=== PATIENT | male | born 1940 | race Caucasian/White ===

== ENCOUNTER 2017-02-13 00:10 | Emergency (ER) | payer OTHER ==
[~2017-02-13] VITALS: Ht 165.1 cm; Wt 68.4 kg
[~2017-02-13 00:10] MED LIST: ALLOPURINOL100 MG PO; AMARYL4 MG PO; AMLODIPINE BESY10 MG PO; AMLODIPINE BESYL5 MG PO; APRESOLINE25 MG PO; ASCORBIC ACID500 M3 PO; ASPIR-LOW81 MG PO; ATORVASTATIN CA40 MG PO; CELEBREX200 MG PO; CLOPIDOGREL75 MG PO; COLCRYS0.6 MG PO; Cozaar PO; FOLIC ACID1 MG PO; GABAPENTIN100 MG PO; GEMFIBROZIL600 MG PO; GLUCOPHAGE1000 MG PO; HUMULIN N100 UNIT/2 SC; HUMULIN N100 UNITS/ SC; HYDROCODON-ACE1 EAC7 PO; IMDUR60 MG PO; ISOSORBIDE MONO60 MG PO; Imdur PO; LANTUS 3 M100 UNITS1 SC; LEVEMIR FL100 UNITS/ SC; LISINOPRIL20 MG PO; LISINOPRIL5 MG PO; LOPID600 MG PO; LOPRESSOR100 M1 PO; LOPRESSOR50 MG PO; Lipitor PO; Lopid PO; Lopressor PO; METOPROLOL TART50 MG PO; NOVOLIN INSULIN; Oscal 500 w/Vitamin PO; PANTOPRAZOLE SO40 MG PO; PLAVIX75 MG PO; PRINIVIL5 MG PO; Plavix PO; SENNA-TIME S T1 EACH PO; TRAMADOL HCL50 MG PO; Theragran PO; VICODIN 5-3001 EACH PO; Zestril,Prinivil PO; Zyloprim PO; celeBREX PO
[2017-02-13 00:48] LABS: HEMATOCRIT 34.5 % (38.0-50.0); MCH 30.7 PG (29.0-34.0); MCHC 31.9 G/DL (30.0-36.0); MCV 96.4 FL (86-99); MEAN PLAT.VOLUME 11.2 uM^3 (9.0-12.4); PLATELET COUNT 155 K/uL (156-360); RBC DIS.WIDTH-CV 15.1 % (11.8-14.6); RBC DIS.WIDTH-SD 53.9 % (39-53); RED BLOOD COUNT 3.58 M/uL (4.00-5.50); WHITE BLOOD COUNT 11.9 K/uL (4.1-10.2)
[2017-02-13 00:50] LABS: POINT-OF-CARE METER ID UU14100415; POINT-OF-CARE USER ID NUTMMM10
[2017-02-13 00:58] LABS: CHLORIDE 116 mEq/L (99-109); POTASSIUM 5.1 mEq/L (3.7-5.4); SODIUM 145 mEq/L (136-147)
[2017-02-13 00:59] LABS: GLUCOSE 96 mg/dL (70-99)
[2017-02-13 01:01] LABS: ANION GAP 15 MEQ/L (2-14)
[2017-02-13 01:04] LABS: UREA NITROGEN (BUN) 79 mg/dL (9-23)
[2017-02-13 01:11] LABS: GFR ESTIMATE (CALCULATED) 5 mL/min/
[2017-02-13 03:26] VITALS: BP 14/88
== END 2017-02-13 03:27 | disposition home or self-care (01) ==
LOC: EME 00:10
PROVIDERS: Emergency Medicine
DX: E11.649 Type 2 diabetes mellitus with hypoglycemia without coma (principal); N17.9 Acute kidney failure, unspecified; E11.22 Type 2 diabetes mellitus with diabetic chronic kidney disease; I12.9 Hypertensive chronic kidney disease with stage 1 through stage 4 chronic kidney disease, or unspecified chronic kidney disease; N18.9 Chronic kidney disease, unspecified; I25.2 Old myocardial infarction; Z86.73 Personal history of transient ischemic attack (TIA), and cerebral infarction without residual deficits; M10.9 Gout, unspecified; Z87.891 Personal history of nicotine dependence; Z88.0 Allergy status to penicillin
CPT/HCPCS: 80048; 82948; 85027; 99281; 99284

== ENCOUNTER 2017-02-16 09:01 | Emergency (ER) | payer OTHER ==
[~2017-02-16] VITALS: Ht 162.6 cm; Wt 63.7 kg
[2017-02-16 09:28] LABS: BASOPHIL COUNT 0.1 K/uL (0-0.1); EOSINOPHIL (%) 12.9 % (0-5); EOSINOPHIL COUNT 1.6 K/uL (0-0.3); HEMATOCRIT 29.9 % (38.0-50.0); IMMATURE GRANULOCYTE (%) 1.1 % (0.0-0.7); IMMATURE GRANULOCYTE COUNT 0.1 K/uL; INSTRUMENT ABS NEUTROPHIL CT 8.8 K/uL; MCH 31.4 PG (29.0-34.0); MCHC 31.8 G/DL (30.0-36.0); MCV 98.7 FL (86-99); MEAN PLAT.VOLUME 10.8 uM^3 (9.0-12.4); MONOCYTE (%) 6.1 % (3-12); MONOCYTE COUNT 0.8 K/uL (0-0.8); NEUTROPHIL (%) 71.5 % (45-76); NEUTROPHIL COUNT 8.8 K/uL (1.8-6.4); PLATELET COUNT 153 K/uL (156-360); RBC DIS.WIDTH-CV 15.3 % (11.8-14.6); RBC DIS.WIDTH-SD 55.8 % (39-53); RED BLOOD COUNT 3.03 M/uL (4.00-5.50); WHITE BLOOD COUNT 12.3 K/uL (4.1-10.2)
[2017-02-16 09:41] LABS: CHLORIDE 113 mEq/L (99-109); POTASSIUM 4.9 mEq/L (3.7-5.4); SODIUM 143 mEq/L (136-147)
[2017-02-16 09:43] LABS: GLUCOSE 116 mg/dL (70-99)
[2017-02-16 09:45] LABS: ANION GAP 14 MEQ/L (2-14)
[2017-02-16 09:47] LABS: GFR ESTIMATE (CALCULATED) 6 mL/min/
[2017-02-16 09:48] LABS: UREA NITROGEN (BUN) 85 mg/dL (9-23)
[2017-02-16 10:28] LABS: POINT-OF-CARE METER ID UU14100415
[2017-02-16 10:56] LABS: POINT-OF-CARE METER ID UU14100415; POINT-OF-CARE USER ID STWBNM
[2017-02-16 12:24] VITALS: BP 178/76
== END 2017-02-16 12:47 | disposition home or self-care (01) ==
LOC: EME → EDBD 09:01 → EME 09:01
PROVIDERS: Emergency Medicine
DX: E11.649 Type 2 diabetes mellitus with hypoglycemia without coma (principal); E11.22 Type 2 diabetes mellitus with diabetic chronic kidney disease; I12.9 Hypertensive chronic kidney disease with stage 1 through stage 4 chronic kidney disease, or unspecified chronic kidney disease; N18.9 Chronic kidney disease, unspecified; Z79.4 Long term (current) use of insulin; Z91.81 History of falling; Z87.891 Personal history of nicotine dependence
CPT/HCPCS: 71010; 80048; 81003; 82948; 85025; 99281; 99285

== ENCOUNTER 2017-02-25 16:58 | Inpatient (IN) | payer OTHER ==
[~2017-02-25] VITALS: Ht 162.6 cm; Wt 64.9 kg
[2017-02-25 18:50] LABS: HEMATOCRIT 26.6 % (38.0-50.0); MCH 30.9 PG (29.0-34.0); MCHC 30.8 G/DL (30.0-36.0); MCV 100.4 FL (86-99); MEAN PLAT.VOLUME 11.5 uM^3 (9.0-12.4); PLATELET COUNT 162 K/uL (156-360); RED BLOOD COUNT 2.65 M/uL (4.00-5.50); WHITE BLOOD COUNT 8.9 K/uL (4.1-10.2)
[2017-02-25 19:00] LABS: CHLORIDE 114 mEq/L (99-109); SODIUM 142 mEq/L (136-147)
[2017-02-25 19:03] LABS: ANION GAP 15 MEQ/L (2-14)
[2017-02-25 19:04] LABS: TOTAL BILIRUBIN 0.2 mg/dL (0.0-1.0)
[2017-02-25 19:05] LABS: ALKALINE PHOSPHATASE 113 IU/L (3-129)
[2017-02-25 19:06] LABS: GFR ESTIMATE (CALCULATED) 5 mL/min/
[2017-02-25 19:19] LABS: POTASSIUM 6.4 mEq/L (3.7-5.4)
[2017-02-25 19:22] LABS: GLUCOSE 167 mg/dL (70-99)
[2017-02-25 19:23] LABS: UREA NITROGEN (BUN) 112 mg/dL (9-23)
[2017-02-25 20:30] VITALS: BP 147/70
[2017-02-25] MEDS ORDERED: TOPROL XL100 MG PO (22:08)
[2017-02-25] MEDS ORDERED: NOVOLIN N100 UNITS/ SC ×2 (22:13→22:14)
[2017-02-26 00:58] LABS: POINT-OF-CARE METER ID UU13113698; POINT-OF-CARE USER ID ENVMNS
[2017-02-26 00:58] LABS: CARBON DIOXIDE (BICARBONATE) 12.8 MEQ/L (20-31)
[2017-02-26 03:00] VITALS: BP 155/89
[2017-02-26 04:51] LABS: ADD MIUA? YES; BILIRUBIN NEGATIVE; BLOOD SMALL; COLOR YELLOW ((YELLOW)); GLUCOSE (STRIP) >=500; KETONES NEGATIVE; LEUKOCYTES NEGATIVE; NITRITE NEGATIVE; PROTEIN (STRIP) >=500; SPECIFIC GRAVITY 1.012 (1.000-1.030); UROBILINOGEN 0.2 MG/DL (0.2-1.0)
[2017-02-26 05:02] LABS: BACTERIA RARE /HPF; EPITHELIAL CELLS RARE /HPF; MUCUS TRACE /LPF; RED BLOOD CELLS 0-5 /HPF (0-5); UCUL ADDED? NO; WHITE BLOOD CELLS 0-5 /HPF (0-5)
[2017-02-26 05:16] LABS: HEMATOCRIT 25.2 % (38.0-50.0); MCH 32.1 PG (29.0-34.0); MCHC 31.7 G/DL (30.0-36.0); MCV 101.2 FL (86-99); PLATELET COUNT 146 K/uL (156-360); RBC DIS.WIDTH-SD 59.8 % (39-53); RED BLOOD COUNT 2.49 M/uL (4.00-5.50); WHITE BLOOD COUNT 8.8 K/uL (4.1-10.2)
[2017-02-26 06:15] LABS: ANION GAP 14 MEQ/L (2-14); ANION GAP 16 MEQ/L (2-14); CHLORIDE 116 MEQ/L (99-109); GFR ESTIMATE (CALCULATED) 6 mL/min/; POTASSIUM 5.7 MEQ/L (3.7-5.4); SAMPLE HEMOLYSIS CHECK 0; SAMPLE ICTERIC CHECK 0; SAMPLE LIPEMIA CHECK 0; SODIUM 142 MEQ/L (136-147); SODIUM 143 MEQ/L (136-147); UREA NITROGEN (BUN) 95 mg/dL (9-23); UREA NITROGEN (BUN) 96 mg/dL (9-23)
[2017-02-26 06:17] LABS: GLUCOSE 98 mg/dL (70-99)
[2017-02-26 06:19] LABS: GLUCOSE 98 mg/dL (70-99)
[2017-02-26 07:29] VITALS: BP 158/75
[2017-02-26 07:49] LABS: POINT-OF-CARE METER ID UU13113781
[2017-02-26 12:29] VITALS: BP 150/70
[2017-02-26 14:51] LABS: IRON 40 MCG/DL (35-150)
[2017-02-26 16:00] VITALS: BP 151/76
[2017-02-26 19:00] VITALS: BP 146/66
[2017-02-26 20:04] LABS: INTERNAL CONTROL VALID? YES
[2017-02-26 20:32] LABS: C DIFF TOXIN NEGATIVE (NEGATIVE)
[2017-02-26 20:45] LABS: PROBE CHECK PASS; SPECIMEN PROCESSING CONTROL PASS
[2017-02-26 22:18] LABS: POINT-OF-CARE METER ID UU13113781
[2017-02-26 22:30] VITALS: BP 144/67
[2017-02-27 03:00] VITALS: BP 159/89
[2017-02-27 07:04] VITALS: BP 171/75
[2017-02-27 09:06] LABS: POINT-OF-CARE METER ID UU13113675
[2017-02-27 10:47] LABS: HEMATOCRIT 25.4 % (38.0-50.0); MCH 32.7 PG (29.0-34.0); MCHC 31.9 G/DL (30.0-36.0); MCV 102.4 FL (86-99); MEAN PLAT.VOLUME 11.6 uM^3 (9.0-12.4); PLATELET COUNT 158 K/uL (156-360); RBC DIS.WIDTH-CV 16.3 % (11.8-14.6); RED BLOOD COUNT 2.48 M/uL (4.00-5.50); WHITE BLOOD COUNT 10.2 K/uL (4.1-10.2)
[2017-02-27 11:15] LABS: ANION GAP 14 MEQ/L (2-14); CHLORIDE 117 MEQ/L (99-109); GFR ESTIMATE (CALCULATED) 6 mL/min/; GLUCOSE 89 mg/dL (70-99); POTASSIUM 5.6 MEQ/L (3.7-5.4); SAMPLE HEMOLYSIS CHECK 0; SAMPLE ICTERIC CHECK 0; SAMPLE LIPEMIA CHECK 0; SODIUM 143 MEQ/L (136-147); UREA NITROGEN (BUN) 93 mg/dL (9-23)
[2017-02-27 12:43] LABS: POINT-OF-CARE METER ID UU13113681
[2017-02-27 13:35] VITALS: BP 200/93
[2017-02-27 16:13] VITALS: BP 184/79
[2017-02-27 16:37] LABS: POINT-OF-CARE METER ID UU13113781
[2017-02-27 20:00] VITALS: BP 176/84
[2017-02-28] VITALS: BP 172/78
[2017-02-28 02:41] VITALS: BP 165/76
[2017-02-28 09:10] VITALS: BP 159/63
[2017-02-28 09:42] LABS: BASOPHIL COUNT 0.1 K/uL (0-0.1); EOSINOPHIL (%) 9.3 % (0-5); EOSINOPHIL COUNT 1.1 K/uL (0-0.3); HEMATOCRIT 26.6 % (38.0-50.0); IMMATURE GRANULOCYTE (%) 0.9 % (0.0-0.7); IMMATURE GRANULOCYTE COUNT 0.1 K/uL; INSTRUMENT ABS NEUTROPHIL CT 8.7 K/uL; LYMPHOCYTE COUNT 0.9 K/uL (1.0-2.8); MCH 30.9 PG (29.0-34.0); MCHC 31.2 G/DL (30.0-36.0); MCV 98.9 FL (86-99); MEAN PLAT.VOLUME 11.9 uM^3 (9.0-12.4); MONOCYTE (%) 7.6 % (3-12); MONOCYTE COUNT 0.9 K/uL (0-0.8); NEUTROPHIL (%) 74.4 % (45-76); NEUTROPHIL COUNT 8.7 K/uL (1.8-6.4); PLATELET COUNT 147 K/uL (156-360); RBC DIS.WIDTH-CV 16.4 % (11.8-14.6); RBC DIS.WIDTH-SD 59.1 % (39-53); RED BLOOD COUNT 2.69 M/uL (4.00-5.50); WHITE BLOOD COUNT 11.7 K/uL (4.1-10.2)
[2017-02-28 10:36] LABS: ANTI-HEPATITIS B CORE (TOTAL) Nonreactive; HBCT INDEX 0.12
[2017-02-28 10:39] LABS: HBSG INDEX 0.21; HPCA INDEX 0.08
[2017-02-28 10:40] LABS: AHBS INDEX 0; HEPATITIS B SURFACE ANTIBODY Nonreactive
[2017-02-28 11:00] LABS: HEMATOCRIT 26.6 % (38.0-50.0); MCH 30.9 PG (29.0-34.0); MCHC 31.2 G/DL (30.0-36.0); MCV 98.9 FL (86-99); MEAN PLAT.VOLUME 11.9 uM^3 (9.0-12.4); PLATELET COUNT 147 K/uL (156-360); RBC DIS.WIDTH-CV 16.4 % (11.8-14.6); RBC DIS.WIDTH-SD 59.1 % (39-53); RED BLOOD COUNT 2.69 M/uL (4.00-5.50); WHITE BLOOD COUNT 11.7 K/uL (4.1-10.2)
[2017-02-28 11:32] LABS: ANION GAP 13 MEQ/L (2-14); CHLORIDE 111 MEQ/L (99-109); GFR ESTIMATE (CALCULATED) 8 mL/min/; GLUCOSE 192 mg/dL (70-99); POTASSIUM 4.5 MEQ/L (3.7-5.4); SAMPLE HEMOLYSIS CHECK 0; SAMPLE ICTERIC CHECK 0; SAMPLE LIPEMIA CHECK 0; SODIUM 141 MEQ/L (136-147); UREA NITROGEN (BUN) 58 mg/dL (9-23)
[2017-02-28 11:50] VITALS: BP 184/88
[2017-02-28 15:05] LABS: POINT-OF-CARE METER ID UU14174212
[2017-02-28 16:04] LABS: POINT-OF-CARE METER ID UU13113819
[2017-02-28 17:08] VITALS: BP 182/89
[2017-02-28 19:30] VITALS: BP 179/79
[2017-03-01] VITALS (7 sets, daily range): BP systolic 134–189; BP diastolic 64–84
[2017-03-01 05:45] LABS: BASOPHIL COUNT 0.1 K/uL (0-0.1); EOSINOPHIL (%) 9.4 % (0-5); EOSINOPHIL COUNT 1.1 K/uL (0-0.3); HEMATOCRIT 26.6 % (38.0-50.0); IMMATURE GRANULOCYTE (%) 1.2 % (0.0-0.7); IMMATURE GRANULOCYTE COUNT 0.2 K/uL; INSTRUMENT ABS NEUTROPHIL CT 8.6 K/uL; MCH 31.1 PG (29.0-34.0); MCV 97.4 FL (86-99); MEAN PLAT.VOLUME 11.6 uM^3 (9.0-12.4); MONOCYTE (%) 9.5 % (3-12); MONOCYTE COUNT 1.2 K/uL (0-0.8); NEUTROPHIL (%) 71.4 % (45-76); NEUTROPHIL COUNT 8.6 K/uL (1.8-6.4); NRBC (%) 0.2 /100 WBC (0-0); PLATELET COUNT 137 K/uL (156-360); RBC DIS.WIDTH-CV 16.1 % (11.8-14.6); RBC DIS.WIDTH-SD 57.2 % (39-53); RED BLOOD COUNT 2.73 M/uL (4.00-5.50); WHITE BLOOD COUNT 12.1 K/uL (4.1-10.2)
[2017-03-01 06:22] LABS: ANION GAP 12 MEQ/L (2-14); CHLORIDE 107 MEQ/L (99-109); POTASSIUM 4.2 MEQ/L (3.7-5.4); SAMPLE HEMOLYSIS CHECK 0; SAMPLE ICTERIC CHECK 0; SAMPLE LIPEMIA CHECK 0; SODIUM 139 MEQ/L (136-147); UREA NITROGEN (BUN) 41 mg/dL (9-23)
[2017-03-01 06:24] LABS: GFR ESTIMATE (CALCULATED) 11 mL/min/; GLUCOSE 89 mg/dL (70-99)
[2017-03-02 04:30] VITALS: BP 168/76
[2017-03-02 05:42] LABS: BASOPHIL COUNT 0.1 K/uL (0-0.1); EOSINOPHIL (%) 2.1 % (0-5); EOSINOPHIL COUNT 0.3 K/uL (0-0.3); HEMATOCRIT 27.2 % (38.0-50.0); IMMATURE GRANULOCYTE (%) 1.3 % (0.0-0.7); IMMATURE GRANULOCYTE COUNT 0.2 K/uL; INSTRUMENT ABS NEUTROPHIL CT 12.3 K/uL; LYMPHOCYTE COUNT 0.6 K/uL (1.0-2.8); MCH 30.4 PG (29.0-34.0); MCHC 30.9 G/DL (30.0-36.0); MCV 98.6 FL (86-99); MEAN PLAT.VOLUME 11.6 uM^3 (9.0-12.4); MONOCYTE (%) 10.7 % (3-12); MONOCYTE COUNT 1.6 K/uL (0-0.8); NEUTROPHIL (%) 81.5 % (45-76); NEUTROPHIL COUNT 12.3 K/uL (1.8-6.4); NRBC (%) 0.3 /100 WBC (0-0); PLATELET COUNT 147 K/uL (156-360); RBC DIS.WIDTH-CV 15.9 % (11.8-14.6); RED BLOOD COUNT 2.76 M/uL (4.00-5.50)
[2017-03-02 06:57] LABS: ANION GAP 13 MEQ/L (2-14); CHLORIDE 107 MEQ/L (99-109); GLUCOSE 96 mg/dL (70-99); POTASSIUM 4.5 MEQ/L (3.7-5.4); SAMPLE HEMOLYSIS CHECK 0; SAMPLE ICTERIC CHECK 0; SAMPLE LIPEMIA CHECK 0; SODIUM 139 MEQ/L (136-147); UREA NITROGEN (BUN) 49 mg/dL (9-23)
[2017-03-02 07:09] LABS: GFR ESTIMATE (CALCULATED) 9 mL/min/
[2017-03-02 07:35] VITALS: BP 165/77
[2017-03-02 08:59] LABS: EOSINOPHIL (%) 1.1 % (0-5); EOSINOPHIL COUNT 0.2 K/uL (0-0.3); HEMATOCRIT 26.8 % (38.0-50.0); IMMATURE GRANULOCYTE (%) 1.3 % (0.0-0.7); IMMATURE GRANULOCYTE COUNT 0.2 K/uL; INSTRUMENT ABS NEUTROPHIL CT 13.2 K/uL; LYMPHOCYTE COUNT 0.7 K/uL (1.0-2.8); MCH 32.7 PG (29.0-34.0); MCHC 32.8 G/DL (30.0-36.0); MCV 99.6 FL (86-99); MEAN PLAT.VOLUME 11.7 uM^3 (9.0-12.4); MONOCYTE (%) 10.1 % (3-12); MONOCYTE COUNT 1.6 K/uL (0-0.8); NEUTROPHIL (%) 83.1 % (45-76); NEUTROPHIL COUNT 13.2 K/uL (1.8-6.4); NRBC (%) 0.4 /100 WBC (0-0); PLATELET COUNT 151 K/uL (156-360); RBC DIS.WIDTH-CV 16.1 % (11.8-14.6); RED BLOOD COUNT 2.69 M/uL (4.00-5.50); WHITE BLOOD COUNT 15.8 K/uL (4.1-10.2)
[2017-03-02 12:38] VITALS: BP 195/91
[2017-03-02 15:34] VITALS: BP 165/73
[2017-03-02 19:30] VITALS: BP 164/70
[2017-03-02 23:15] VITALS: BP 160/70
[2017-03-03 03:30] VITALS: BP 154/70
[2017-03-03 05:30] LABS: EOSINOPHIL (%) 1.6 % (0-5); EOSINOPHIL COUNT 0.2 K/uL (0-0.3); HEMATOCRIT 26.5 % (38.0-50.0); IMMATURE GRANULOCYTE (%) 0.9 % (0.0-0.7); IMMATURE GRANULOCYTE COUNT 0.1 K/uL; INSTRUMENT ABS NEUTROPHIL CT 11.1 K/uL; LYMPHOCYTE COUNT 0.8 K/uL (1.0-2.8); MCH 31.6 PG (29.0-34.0); MCHC 32.1 G/DL (30.0-36.0); MCV 98.5 FL (86-99); MEAN PLAT.VOLUME 11.4 uM^3 (9.0-12.4); MONOCYTE (%) 12.6 % (3-12); MONOCYTE COUNT 1.8 K/uL (0-0.8); NEUTROPHIL (%) 78.7 % (45-76); NEUTROPHIL COUNT 11.1 K/uL (1.8-6.4); NRBC (%) 0.2 /100 WBC (0-0); PLATELET COUNT 144 K/uL (156-360); RBC DIS.WIDTH-CV 15.9 % (11.8-14.6); RBC DIS.WIDTH-SD 56.3 % (39-53); RED BLOOD COUNT 2.69 M/uL (4.00-5.50); WHITE BLOOD COUNT 14.1 K/uL (4.1-10.2)
[2017-03-03 06:03] LABS: ANION GAP 13 MEQ/L (2-14); CHLORIDE 102 MEQ/L (99-109); GFR ESTIMATE (CALCULATED) 10 mL/min/; GLUCOSE 83 mg/dL (70-99); POTASSIUM 4.8 MEQ/L (3.7-5.4); SAMPLE HEMOLYSIS CHECK 0; SAMPLE ICTERIC CHECK 0; SAMPLE LIPEMIA CHECK 0; SODIUM 136 MEQ/L (136-147); UREA NITROGEN (BUN) 41 mg/dL (9-23); URIC ACID 4.2 mg/dL (3.1-9.2)
[2017-03-03 07:57] VITALS: BP 158/73
[2017-03-03 11:58] VITALS: BP 153/68
[2017-03-03] MEDS ORDERED: APRESOLINE25 MG PO (14:19)
[2017-03-03] MEDS ORDERED: COZAAR50 MG PO (14:20)
[2017-03-03] MEDS ORDERED: PANTOPRAZOLE SO40 MG PO (14:23)
[2017-03-03] MEDS ORDERED: CALCIUM ACETAT667 MG PO (14:23)
[2017-03-03] MEDS ORDERED: CALCITRIOL0.25 MCG PO (14:24)
[2017-03-03] MEDS ORDERED: NOVOLOG PE100 UNITS/ SC (14:24)
[2017-03-03] MEDS ORDERED: Colchicine,Colcrys PO (14:24)
[2017-03-03] MEDS ORDERED: LORAZEPAM0.5 MG PO (14:30)
[2017-03-03] MEDS ORDERED: OXYCODONE HCL5 MG PO (14:30)
[2017-03-03] MEDS ORDERED: LASIX40 MG PO (14:33)
[2017-05-05] MEDS ORDERED: APRESOLINE25 MG PO (22:44)
[2017-05-05] MEDS ORDERED: OXYCODONE HCL5 M1 PO (22:46)
[2017-05-05] MEDS ORDERED: PLAVIX75 MG PO (22:47)
[2017-05-05] MEDS ORDERED: CALCIUM ACETAT667 MG PO (22:47)
[2017-05-05] MEDS ORDERED: IMDUR60 MG PO (22:48)
[2017-05-05] MEDS ORDERED: TOPROL XL50 MG PO (22:49)
[2017-05-05] MEDS ORDERED: ASPIRIN81 M2 PO (22:50)
[2017-05-05] MEDS ORDERED: COZAAR100 MG PO (22:50)
[2017-05-05] MEDS ORDERED: COLACE100 MG PO (22:51)
[2017-05-05] MEDS ORDERED: RENVELA800 MG PO (22:51)
[2017-05-05] MEDS ORDERED: FUROSEMIDE20 MG PO (22:51)
[2017-05-05] MEDS ORDERED: OXYCODONE HCL5 MG PO ×2 (22:53→22:58)
[2017-05-05] MEDS ORDERED: SENNA PLUS TAB1 EACH PO (22:57)
[2017-05-05] MEDS ORDERED: ATIVAN0.5 MG PO (22:59)
[2017-05-05] MEDS ORDERED: TRAMADOL HCL50 MG PO (23:00)
[2017-05-05] MEDS ORDERED: DUONEB 2.5-0.5 M3 ML AEROSOL (23:01)
[2017-05-10] MEDS ORDERED: LISINOPRIL5 MG PO (12:54)
[2017-05-10] MEDS ORDERED: PANTOPRAZOLE SO40 MG PO (12:56)
== END 2017-03-03 16:42 | DRG 683 ==
LOC: EME 16:58 → 4EAST 21:02 → EDOF 21:02 → 4EAST 22:17
PROVIDERS: Hospitalist; Internal Medicine; Internal Medicine Nephrology
DX: N17.9 Acute kidney failure, unspecified (principal); I12.0 Hypertensive chronic kidney disease with stage 5 chronic kidney disease or end stage renal disease; E87.2 Acidosis; I42.9 Cardiomyopathy, unspecified; K92.1 Melena; I69.351 Hemiplegia and hemiparesis following cerebral infarction affecting right dominant side; N18.6 End stage renal disease; K29.60 Other gastritis without bleeding; B96.23 Unspecified Shiga toxin-producing Escherichia coli [E. coli] [STEC] as the cause of diseases classified elsewhere; D63.1 Anemia in chronic kidney disease; E11.22 Type 2 diabetes mellitus with diabetic chronic kidney disease; N25.81 Secondary hyperparathyroidism of renal origin; K29.80 Duodenitis without bleeding; I25.2 Old myocardial infarction; M10.9 Gout, unspecified; M19.90 Unspecified osteoarthritis, unspecified site; E87.5 Hyperkalemia; I34.0 Nonrheumatic mitral (valve) insufficiency; I27.2 Other secondary pulmonary hypertension; I16.0 Hypertensive urgency; I50.9 Heart failure, unspecified; E11.649 Type 2 diabetes mellitus with hypoglycemia without coma; E78.5 Hyperlipidemia, unspecified; I36.0 Nonrheumatic tricuspid (valve) stenosis; G89.29 Other chronic pain; R29.6 Repeated falls; Z79.82 Long term (current) use of aspirin; Z80.0 Family history of malignant neoplasm of digestive organs; Z82.49 Family history of ischemic heart disease and other diseases of the circulatory system; Z99.2 Dependence on renal dialysis
CPT/HCPCS: 71010; 80048; 80048 91; 80053; 80069; 81003; 82803; 82948; 83540; 83630; 84466; 84550; 85014; 85018; 85025; 85025 91; 85027; 86704; 86706; 86803; 87045; 87177; 87340; 87493; 87506; 88305; 88342 TC; 93005; 93306; 93970; 94640; 99281; 99285; C1788; C9113; J0360; J0610; J0690; J0881; J1644; J1756; J1815; J2250; J2270; J3010; J7030; J7040; J7050

== ENCOUNTER 2017-03-06 02:00 | Inpatient (IN) | payer OTHER ==
[~2017-03-06] VITALS: Ht 162.6 cm; Wt 64.0 kg
[~2017-03-06 02:00] MED LIST changes: +CALCITRIOL0.25 MCG PO; +CALCIUM ACETAT667 MG PO; +COZAAR50 MG PO; +Colchicine,Colcrys PO; +LASIX40 MG PO; +LORAZEPAM0.5 MG PO; +NOVOLIN N100 UNITS/ SC; +NOVOLOG PE100 UNITS/ SC; +OXYCODONE HCL5 MG PO; +TOPROL XL100 MG PO
[2017-03-06 02:38] LABS: EOSINOPHIL (%) 6.9 % (0-5); EOSINOPHIL COUNT 0.6 K/uL (0-0.3); HEMATOCRIT 25.9 % (38.0-50.0); IMMATURE GRANULOCYTE (%) 1.3 % (0.0-0.7); IMMATURE GRANULOCYTE COUNT 0.1 K/uL; INSTRUMENT ABS NEUTROPHIL CT 6.4 K/uL; LYMPHOCYTE COUNT 0.5 K/uL (1.0-2.8); MCH 30.8 PG (29.0-34.0); MCHC 31.7 G/DL (30.0-36.0); MCV 97.4 FL (86-99); MEAN PLAT.VOLUME 10.6 uM^3 (9.0-12.4); MONOCYTE (%) 10.8 % (3-12); MONOCYTE COUNT 0.9 K/uL (0-0.8); NEUTROPHIL (%) 75.5 % (45-76); NEUTROPHIL COUNT 6.4 K/uL (1.8-6.4); NRBC (%) 0.2 /100 WBC (0-0); PLATELET COUNT 135 K/uL (156-360); RBC DIS.WIDTH-CV 14.8 % (11.8-14.6); RBC DIS.WIDTH-SD 53.2 % (39-53); RED BLOOD COUNT 2.66 M/uL (4.00-5.50); WHITE BLOOD COUNT 8.5 K/uL (4.1-10.2)
[2017-03-06 02:51] LABS: CHLORIDE 95 mEq/L (99-109); POTASSIUM 4.2 mEq/L (3.7-5.4); SODIUM 137 mEq/L (136-147)
[2017-03-06 02:54] LABS: ANION GAP 17 MEQ/L (2-14); GLUCOSE 138 mg/dL (70-99)
[2017-03-06 02:55] LABS: TOTAL BILIRUBIN 0.3 mg/dL (0.0-1.0)
[2017-03-06 02:57] LABS: ALKALINE PHOSPHATASE 150 IU/L (3-129); GFR ESTIMATE (CALCULATED) 12 mL/min/
[2017-03-06 02:58] LABS: TROP-I INTERPRETATION INDETERMINATE; TROPONIN-I 0.31 ng/mL (0.0-0.30); UREA NITROGEN (BUN) 42 mg/dL (9-23)
[2017-03-06 06:00] VITALS: BP 105/60
[2017-03-06 07:00] VITALS: BP 119/63
[2017-03-06 07:43] LABS: METH RESISTANT S AUREUS PCR NEGATIVE (NEGATIVE)
[2017-03-06 07:59] LABS: PROBE CHECK PASS; SPECIMEN PROCESSING CONTROL PASS
[2017-03-06 11:00] VITALS: BP 139/67
[2017-03-06 16:00] VITALS: BP 139/67
[2017-03-06 16:30] LABS: BICARBONATE 26.5 mEq/L (22-26); CARBOXY HGB 1.8 % (0-5); COMMENTS - BLOOD GASES A+C+; METHEMOGLOBIN 1.4 % (0-1.5); O2 FLOW 9.5 L/MIN; PCO2 40 mm Hg (35-45); PO2 54 mm Hg (80-100); SITE LR; pH 7.43 (7.35-7.45)
[2017-03-06 16:31] LABS: DEVICE HFNC; TOTAL RESP RATE 23 resp/min
[2017-03-06 17:02] LABS: POINT-OF-CARE METER ID UU13113731
[2017-03-06 17:20] LABS: TROP-I INTERPRETATION POSITIVE; TROPONIN-I 1.68 ng/mL (0.0-0.30)
[2017-03-06 22:45] LABS: POINT-OF-CARE METER ID UU13113748; POINT-OF-CARE USER ID PHATLC
[2017-03-07 06:17] LABS: EOSINOPHIL COUNT 0.3 K/uL (0-0.3); HEMATOCRIT 26.1 % (38.0-50.0); IMMATURE GRANULOCYTE (%) 1.2 % (0.0-0.7); IMMATURE GRANULOCYTE COUNT 0.1 K/uL; LYMPHOCYTE COUNT 0.5 K/uL (1.0-2.8); MCH 32.5 PG (29.0-34.0); MCHC 33.3 G/DL (30.0-36.0); MCV 97.4 FL (86-99); MEAN PLAT.VOLUME 11.5 uM^3 (9.0-12.4); MONOCYTE (%) 11.3 % (3-12); MONOCYTE COUNT 0.9 K/uL (0-0.8); NEUTROPHIL (%) 76.6 % (45-76); PLATELET COUNT 115 K/uL (156-360); RBC DIS.WIDTH-CV 14.6 % (11.8-14.6); RBC DIS.WIDTH-SD 51.8 % (39-53); RED BLOOD COUNT 2.68 M/uL (4.00-5.50); WHITE BLOOD COUNT 7.8 K/uL (4.1-10.2)
[2017-03-07 07:02] LABS: TROP-I INTERPRETATION POSITIVE; TROPONIN-I 2.25 ng/mL (0.0-0.30)
[2017-03-07 07:35] LABS: ANION GAP 20 MEQ/L (2-14); CHLORIDE 93 MEQ/L (99-109); GFR ESTIMATE (CALCULATED) 11 mL/min/; SAMPLE HEMOLYSIS CHECK 0; SAMPLE ICTERIC CHECK 0; SAMPLE LIPEMIA CHECK 0; SODIUM 134 MEQ/L (136-147); UREA NITROGEN (BUN) 52 mg/dL (9-23)
[2017-03-07 07:37] LABS: GLUCOSE 101 mg/dL (70-99)
[2017-03-07 09:00] VITALS: BP 140/50
[2017-03-07 12:00] VITALS: BP 105/52
[2017-03-07 12:49] LABS: POINT-OF-CARE METER ID UU13113731
[2017-03-07 17:31] LABS: POINT-OF-CARE METER ID UU13113748
[2017-03-07 18:26] VITALS: BP 134/72
[2017-03-07 23:43] VITALS: BP 129/58
[2017-03-08] VITALS (8 sets, daily range): BP systolic 120–174; BP diastolic 61–96
[2017-03-08 08:49] LABS: ANION GAP 15 MEQ/L (2-14); CHLORIDE 93 MEQ/L (99-109); GFR ESTIMATE (CALCULATED) 9 mL/min/; GLUCOSE 169 mg/dL (70-99); POTASSIUM 4.3 MEQ/L (3.7-5.4); SAMPLE HEMOLYSIS CHECK 0; SAMPLE ICTERIC CHECK 0; SAMPLE LIPEMIA CHECK 0; SODIUM 131 MEQ/L (136-147); UREA NITROGEN (BUN) 66 mg/dL (9-23)
[2017-03-08 08:52] LABS: EOSINOPHIL (%) 2.3 % (0-5); EOSINOPHIL COUNT 0.2 K/uL (0-0.3); HEMATOCRIT 24.7 % (38.0-50.0); IMMATURE GRANULOCYTE (%) 1.5 % (0.0-0.7); IMMATURE GRANULOCYTE COUNT 0.1 K/uL; INSTRUMENT ABS NEUTROPHIL CT 7.8 K/uL; LYMPHOCYTE COUNT 0.6 K/uL (1.0-2.8); MCH 31.2 PG (29.0-34.0); MCV 97.6 FL (86-99); MEAN PLAT.VOLUME 11.5 uM^3 (9.0-12.4); MONOCYTE (%) 8.8 % (3-12); MONOCYTE COUNT 0.8 K/uL (0-0.8); NEUTROPHIL (%) 81.3 % (45-76); NEUTROPHIL COUNT 7.8 K/uL (1.8-6.4); NRBC (%) 0.2 /100 WBC (0-0); RBC DIS.WIDTH-CV 14.5 % (11.8-14.6); RBC DIS.WIDTH-SD 51.5 % (39-53); RED BLOOD COUNT 2.53 M/uL (4.00-5.50); WHITE BLOOD COUNT 9.6 K/uL (4.1-10.2)
[2017-03-08 08:55] LABS: PLATELET COUNT 155 K/uL (156-360)
[2017-03-09] VITALS: BP 142/63
[2017-03-09 04:00] VITALS: BP 157/71
[2017-03-09 05:23] LABS: EOSINOPHIL (%) 2.5 % (0-5); EOSINOPHIL COUNT 0.3 K/uL (0-0.3); HEMATOCRIT 29.7 % (38.0-50.0); IMMATURE GRANULOCYTE (%) 2.4 % (0.0-0.7); IMMATURE GRANULOCYTE COUNT 0.2 K/uL; LYMPHOCYTE COUNT 0.7 K/uL (1.0-2.8); MCH 30.2 PG (29.0-34.0); MCV 94.3 FL (86-99); MEAN PLAT.VOLUME 10.8 uM^3 (9.0-12.4); MONOCYTE COUNT 0.9 K/uL (0-0.8); NEUTROPHIL (%) 79.2 % (45-76); PLATELET COUNT 148 K/uL (156-360); RBC DIS.WIDTH-CV 15.8 % (11.8-14.6); RBC DIS.WIDTH-SD 54.5 % (39-53); WHITE BLOOD COUNT 10.1 K/uL (4.1-10.2)
[2017-03-09 05:34] LABS: RED BLOOD COUNT 3.15 M/uL (4.00-5.50)
[2017-03-09 05:47] LABS: TROP-I INTERPRETATION POSITIVE; TROPONIN-I 1.59 ng/mL (0.0-0.30)
[2017-03-09 05:58] LABS: ANION GAP 15 MEQ/L (2-14); CHLORIDE 96 MEQ/L (99-109); GFR ESTIMATE (CALCULATED) 11 mL/min/; GLUCOSE 125 mg/dL (70-99); POTASSIUM 4.4 MEQ/L (3.7-5.4); SAMPLE HEMOLYSIS CHECK 0; SAMPLE ICTERIC CHECK 0; SAMPLE LIPEMIA CHECK 0; SODIUM 132 MEQ/L (136-147); UREA NITROGEN (BUN) 46 mg/dL (9-23)
[2017-03-09 08:08] LABS: POINT-OF-CARE METER ID UU13113698
[2017-03-09 08:25] VITALS: BP 190/82
[2017-03-09 10:21] LABS: BASE EXCESS -2.5 mEq/L (-3 to +3); BICARBONATE 23.2 mEq/L (22-26); CARBOXY HGB 1.4 % (0-5); METHEMOGLOBIN 1.5 % (0-1.5); PCO2 43 mm Hg (35-45); pH 7.34 (7.35-7.45)
[2017-03-09 10:22] LABS: DEVICE NRBR; FI02 100 %; O2 FLOW 15 L/MIN; PO2 220 mm Hg (80-100); SITE LB
[2017-03-09 10:23] LABS: TOTAL RESP RATE 22 resp/min
[2017-03-09 10:45] LABS: TROP-I INTERPRETATION POSITIVE; TROPONIN-I 1.38 ng/mL (0.0-0.30)
[2017-03-09 11:27] VITALS: BP 132/61
[2017-03-09 12:00] LABS: POINT-OF-CARE METER ID UU13113698
[2017-03-09 16:34] LABS: TROP-I INTERPRETATION POSITIVE; TROPONIN-I 1.14 ng/mL (0.0-0.30)
[2017-03-09 16:42] VITALS: BP 128/56
[2017-03-09 16:43] LABS: POINT-OF-CARE METER ID UU13113698
[2017-03-09 20:00] VITALS: BP 129/63
[2017-03-09 20:50] LABS: POINT-OF-CARE METER ID UU14174216
[2017-03-10 00:08] VITALS: BP 125/57
[2017-03-10 03:08] VITALS: BP 122/65
[2017-03-10 07:50] VITALS: BP 123/56
[2017-03-10 08:15] LABS: POINT-OF-CARE METER ID UU14174216; POINT-OF-CARE USER ID ENVKC36
[2017-03-10 11:32] LABS: POINT-OF-CARE METER ID UU13113696
[2017-03-10 12:14] VITALS: BP 103/51
[2017-03-10 13:28] LABS: EOSINOPHIL (%) 0 % (0-5); IMMATURE GRANULOCYTE (%) 1.7 % (0.0-0.7); IMMATURE GRANULOCYTE COUNT 0.2 K/uL; INSTRUMENT ABS NEUTROPHIL CT 9.9 K/uL; LYMPHOCYTE COUNT 0.8 K/uL (1.0-2.8); MCHC 31.5 G/DL (30.0-36.0); MCV 95.2 FL (86-99); MEAN PLAT.VOLUME 11.2 uM^3 (9.0-12.4); MONOCYTE (%) 6.5 % (3-12); MONOCYTE COUNT 0.8 K/uL (0-0.8); NEUTROPHIL (%) 85.2 % (45-76); NEUTROPHIL COUNT 9.9 K/uL (1.8-6.4); PLATELET COUNT 172 K/uL (156-360); RBC DIS.WIDTH-CV 15.2 % (11.8-14.6); RBC DIS.WIDTH-SD 52.5 % (39-53); RED BLOOD COUNT 2.73 M/uL (4.00-5.50); WHITE BLOOD COUNT 11.6 K/uL (4.1-10.2)
[2017-03-10 13:29] LABS: ANION GAP 16 MEQ/L (2-14); CHLORIDE 94 MEQ/L (99-109); POTASSIUM 4.5 MEQ/L (3.7-5.4); SAMPLE HEMOLYSIS CHECK 0; SAMPLE ICTERIC CHECK 0; SAMPLE LIPEMIA CHECK 0; SODIUM 131 MEQ/L (136-147)
[2017-03-10 13:35] LABS: GFR ESTIMATE (CALCULATED) 8 mL/min/; GLUCOSE 111 mg/dL (70-99)
[2017-03-10 13:36] LABS: UREA NITROGEN (BUN) 75 mg/dL (9-23)
[2017-03-10 16:17] VITALS: BP 168/67
[2017-03-10 16:51] LABS: POINT-OF-CARE METER ID UU14174216; POINT-OF-CARE USER ID ENVKC36
[2017-03-10 17:07] LABS: COMMENTS - BLOOD GASES A+C+; DEVICE NC; O2 FLOW 4 L/MIN; PCO2 34 mm Hg (35-45); PO2 74 mm Hg (80-100); SITE LR; TOTAL RESP RATE 24 resp/min; pH 7.48 (7.35-7.45)
[2017-03-10 17:08] LABS: BASE EXCESS 1.9 mEq/L (-3 to +3); BICARBONATE 25.3 mEq/L (22-26); CARBOXY HGB 1.5 % (0-5); HEMOGLOBIN 9.1 (12.5-16.6); METHEMOGLOBIN 1.4 % (0-1.5); O2 SATURATION (CALCULATED) 95.1 % (95-99)
[2017-03-10 17:33] LABS: POINT-OF-CARE USER ID NUTSLF44
[2017-03-10 19:32] VITALS: BP 121/59
[2017-03-10 20:44] LABS: POINT-OF-CARE METER ID UU14174216; POINT-OF-CARE USER ID ENVMNS
[2017-03-11 00:03] VITALS: BP 124/61
[2017-03-11 04:43] VITALS: BP 135/60
[2017-03-11 05:41] LABS: EOSINOPHIL (%) 1.2 % (0-5); EOSINOPHIL COUNT 0.1 K/uL (0-0.3); HEMATOCRIT 29.2 % (38.0-50.0); IMMATURE GRANULOCYTE (%) 1.2 % (0.0-0.7); IMMATURE GRANULOCYTE COUNT 0.1 K/uL; INSTRUMENT ABS NEUTROPHIL CT 9.6 K/uL; LYMPHOCYTE COUNT 0.9 K/uL (1.0-2.8); MCH 31.4 PG (29.0-34.0); MCHC 32.9 G/DL (30.0-36.0); MCV 95.4 FL (86-99); MEAN PLAT.VOLUME 11.3 uM^3 (9.0-12.4); MONOCYTE (%) 8.2 % (3-12); NEUTROPHIL (%) 81.7 % (45-76); NEUTROPHIL COUNT 9.6 K/uL (1.8-6.4); PLATELET COUNT 167 K/uL (156-360); RBC DIS.WIDTH-CV 14.8 % (11.8-14.6); RBC DIS.WIDTH-SD 52.3 % (39-53); RED BLOOD COUNT 3.06 M/uL (4.00-5.50); WHITE BLOOD COUNT 11.7 K/uL (4.1-10.2)
[2017-03-11 06:07] LABS: ANION GAP 14 MEQ/L (2-14); CHLORIDE 98 MEQ/L (99-109); GFR ESTIMATE (CALCULATED) 11 mL/min/; GLUCOSE 84 mg/dL (70-99); POTASSIUM 4.1 MEQ/L (3.7-5.4); SAMPLE HEMOLYSIS CHECK 0; SAMPLE ICTERIC CHECK 0; SAMPLE LIPEMIA CHECK 0; SODIUM 136 MEQ/L (136-147); UREA NITROGEN (BUN) 46 mg/dL (9-23)
[2017-03-11 07:26] VITALS: BP 127/58
[2017-03-11 07:59] LABS: POINT-OF-CARE METER ID UU13113781
[2017-03-11 11:31] LABS: POINT-OF-CARE METER ID UU13113781
[2017-03-11 11:46] VITALS: BP 116/54
[2017-03-11 16:14] LABS: POINT-OF-CARE METER ID UU13113819
[2017-03-11 19:50] VITALS: BP 154/70
[2017-03-11 21:23] LABS: POINT-OF-CARE USER ID ENVMNS
[2017-03-12 00:30] VITALS: BP 121/61
[2017-03-12 04:40] VITALS: BP 117/57
[2017-03-12 05:22] LABS: EOSINOPHIL (%) 0.8 % (0-5); EOSINOPHIL COUNT 0.1 K/uL (0-0.3); HEMATOCRIT 29.7 % (38.0-50.0); IMMATURE GRANULOCYTE (%) 0.9 % (0.0-0.7); IMMATURE GRANULOCYTE COUNT 0.1 K/uL; INSTRUMENT ABS NEUTROPHIL CT 13.4 K/uL; LYMPHOCYTE COUNT 0.4 K/uL (1.0-2.8); MCH 29.8 PG (29.0-34.0); MCHC 31.6 G/DL (30.0-36.0); MCV 94.3 FL (86-99); MEAN PLAT.VOLUME 11.4 uM^3 (9.0-12.4); MONOCYTE (%) 6.8 % (3-12); NEUTROPHIL COUNT 13.4 K/uL (1.8-6.4); PLATELET COUNT 185 K/uL (156-360); RBC DIS.WIDTH-CV 14.9 % (11.8-14.6); RBC DIS.WIDTH-SD 51.7 % (39-53); RED BLOOD COUNT 3.15 M/uL (4.00-5.50); WHITE BLOOD COUNT 15.1 K/uL (4.1-10.2)
[2017-03-12 06:02] LABS: ANION GAP 16 MEQ/L (2-14); CHLORIDE 98 MEQ/L (99-109); GFR ESTIMATE (CALCULATED) 9 mL/min/; SAMPLE HEMOLYSIS CHECK 0; SAMPLE ICTERIC CHECK 0; SAMPLE LIPEMIA CHECK 0; SODIUM 135 MEQ/L (136-147); UREA NITROGEN (BUN) 65 mg/dL (9-23)
[2017-03-12 06:03] LABS: GLUCOSE 177 mg/dL (70-99)
[2017-03-12 11:52] VITALS: BP 135/68
[2017-03-12 11:59] LABS: POINT-OF-CARE USER ID ENVKC36
[2017-03-12 15:36] VITALS: BP 112/57
[2017-03-12 16:45] LABS: POINT-OF-CARE METER ID UU14174216
[2017-03-12 19:05] VITALS: BP 97/48
[2017-03-13 00:15] VITALS: BP 145/67
[2017-03-13 04:45] VITALS: BP 167/63
[2017-03-13 07:45] LABS: POINT-OF-CARE METER ID UU13113698
[2017-03-13 09:10] VITALS: BP 113/53
[2017-03-13 11:39] VITALS: BP 129/59
[2017-03-13 12:08] LABS: POINT-OF-CARE USER ID ENVKC36
[2017-03-13 16:40] LABS: POINT-OF-CARE USER ID ENVKC36
[2017-03-13 17:14] VITALS: BP 116/56
[2017-03-13 21:07] VITALS: BP 107/52
[2017-03-13 21:24] LABS: POINT-OF-CARE METER ID UU13113698
[2017-03-14] VITALS (7 sets, daily range): BP systolic 108–124; BP diastolic 51–59
[2017-03-14 08:09] LABS: POINT-OF-CARE METER ID UU13113781
[2017-03-14 10:27] LABS: ANION GAP 13 MEQ/L (2-14); CHLORIDE 96 MEQ/L (99-109); POTASSIUM 4.3 MEQ/L (3.7-5.4); SAMPLE HEMOLYSIS CHECK 0; SAMPLE ICTERIC CHECK 0; SAMPLE LIPEMIA CHECK 0; SODIUM 132 MEQ/L (136-147)
[2017-03-14 10:33] LABS: GFR ESTIMATE (CALCULATED) 8 mL/min/; GLUCOSE 136 mg/dL (70-99); UREA NITROGEN (BUN) 65 mg/dL (9-23)
[2017-03-14 11:56] LABS: POINT-OF-CARE METER ID UU13113781
[2017-03-14 16:10] LABS: POINT-OF-CARE METER ID UU13113698
[2017-03-14 20:56] LABS: POINT-OF-CARE METER ID UU13113698
[2017-03-15 03:30] VITALS: BP 113/53
[2017-03-15 07:24] VITALS: BP 124/60
[2017-03-15 08:41] LABS: BASOPHIL COUNT 0.1 K/uL (0-0.1); EOSINOPHIL (%) 4.2 % (0-5); EOSINOPHIL COUNT 0.7 K/uL (0-0.3); HEMATOCRIT 27.1 % (38.0-50.0); IMMATURE GRANULOCYTE (%) 2.7 % (0.0-0.7); IMMATURE GRANULOCYTE COUNT 0.5 K/uL; LYMPHOCYTE COUNT 0.8 K/uL (1.0-2.8); MCH 31.2 PG (29.0-34.0); MCHC 32.5 G/DL (30.0-36.0); MCV 96.1 FL (86-99); MEAN PLAT.VOLUME 11.7 uM^3 (9.0-12.4); MONOCYTE (%) 6.1 % (3-12); MONOCYTE COUNT 1.1 K/uL (0-0.8); NEUTROPHIL (%) 81.9 % (45-76); PLATELET COUNT 176 K/uL (156-360); RBC DIS.WIDTH-SD 52.8 % (39-53); RED BLOOD COUNT 2.82 M/uL (4.00-5.50); WHITE BLOOD COUNT 17.1 K/uL (4.1-10.2)
[2017-03-15 08:51] LABS: ANION GAP 13 MEQ/L (2-14); CHLORIDE 94 MEQ/L (99-109); POTASSIUM 4.6 MEQ/L (3.7-5.4); SAMPLE HEMOLYSIS CHECK 0; SAMPLE ICTERIC CHECK 0; SAMPLE LIPEMIA CHECK 0; SODIUM 128 MEQ/L (136-147)
[2017-03-15 08:58] LABS: GFR ESTIMATE (CALCULATED) 7 mL/min/; GLUCOSE 159 mg/dL (70-99); UREA NITROGEN (BUN) 77 mg/dL (9-23)
[2017-03-15 11:40] VITALS: BP 146/68
[2017-03-15 12:18] LABS: POINT-OF-CARE METER ID UU13113803
[2017-03-15 15:45] VITALS: BP 126/62
[2017-03-15 17:07] LABS: POINT-OF-CARE METER ID UU13113781
[2017-03-15 19:15] VITALS: BP 119/58
[2017-03-15 23:20] VITALS: BP 134/61
[2017-03-16 00:25] VITALS: BP 130/60
[2017-03-16 04:00] VITALS: BP 136/67
[2017-03-16 07:24] VITALS: BP 144/67
[2017-03-16 08:23] LABS: POINT-OF-CARE METER ID UU13113781
[2017-03-16 11:19] VITALS: BP 137/65
[2017-03-16 11:34] LABS: POINT-OF-CARE METER ID UU13113781
[2017-03-16 16:06] VITALS: BP 115/56
[2017-03-16 20:32] VITALS: BP 119/57
[2017-03-17] VITALS (8 sets, daily range): BP systolic 108–147; BP diastolic 51–66
[2017-03-17 07:49] LABS: POINT-OF-CARE METER ID UU13113698
[2017-03-17 08:57] LABS: HEMATOCRIT 29.1 % (38.0-50.0); MCHC 31.3 G/DL (30.0-36.0); MEAN PLAT.VOLUME 11.6 uM^3 (9.0-12.4); PLATELET COUNT 214 K/uL (156-360); RBC DIS.WIDTH-CV 14.9 % (11.8-14.6); RBC DIS.WIDTH-SD 52.8 % (39-53); RED BLOOD COUNT 3.03 M/uL (4.00-5.50); WHITE BLOOD COUNT 9.9 K/uL (4.1-10.2)
[2017-03-17 09:30] LABS: ANION GAP 13 MEQ/L (2-14); CHLORIDE 94 MEQ/L (99-109); SAMPLE HEMOLYSIS CHECK 0; SAMPLE ICTERIC CHECK 0; SAMPLE LIPEMIA CHECK 0; SODIUM 129 MEQ/L (136-147)
[2017-03-17 09:32] LABS: ABS NEUTROPHIL COUNT 7.2; ANISOCYTOSIS 2+; BAND NEUTROPHILS 0.9 % (0-8.0); BASOPHILS 1.7 %; EOSINOPHIL ABS CT 0.4; EOSINOPHILS 4.3 % (0-5.0); LYMPHOCYTES 3.5 % (15.0-45.0); MACROCYTES 1+; METAMYELOCYTES 0.9 %; MYELOCYTES 5.2 %; PLAT.SUFFICIENCY ADEQUATE; POIKILOCYTOSIS 1+; SEG.NEUTROPHILS 72.2 % (46.0-76.0); SMUDGE CELLS 1.7
[2017-03-17 09:35] LABS: GFR ESTIMATE (CALCULATED) 9 mL/min/; GLUCOSE 140 mg/dL (70-99); UREA NITROGEN (BUN) 67 mg/dL (9-23)
[2017-03-17 12:05] LABS: POINT-OF-CARE METER ID UU13113781
[2017-03-17 21:36] LABS: POINT-OF-CARE METER ID UU13113698
[2017-03-18 03:40] VITALS: BP 149/63
[2017-03-18 07:37] LABS: POINT-OF-CARE METER ID UU13113781
[2017-03-18 07:39] VITALS: BP 134/32
[2017-03-18 11:20] LABS: POINT-OF-CARE METER ID UU13113803
[2017-03-18 11:36] VITALS: BP 114/58
[2017-03-18 15:15] VITALS: BP 112/55
[2017-03-18 15:58] LABS: POINT-OF-CARE METER ID UU13113725
[2017-03-18 20:21] VITALS: BP 103/55
[2017-03-18 22:50] LABS: POINT-OF-CARE METER ID UU13113725
[2017-03-19] VITALS (7 sets, daily range): BP systolic 120–167; BP diastolic 54–74
[2017-03-19 05:56] LABS: HEMATOCRIT 29.8 % (38.0-50.0); MCH 30.4 PG (29.0-34.0); MCHC 31.9 G/DL (30.0-36.0); MCV 95.2 FL (86-99); MEAN PLAT.VOLUME 11.2 uM^3 (9.0-12.4); PLATELET COUNT 175 K/uL (156-360); RBC DIS.WIDTH-CV 14.9 % (11.8-14.6); RBC DIS.WIDTH-SD 51.7 % (39-53); RED BLOOD COUNT 3.13 M/uL (4.00-5.50)
[2017-03-19 06:14] LABS: ANION GAP 11 MEQ/L (2-14); CHLORIDE 95 MEQ/L (99-109); GFR ESTIMATE (CALCULATED) 8 mL/min/; GLUCOSE 124 mg/dL (70-99); SAMPLE HEMOLYSIS CHECK 0; SAMPLE ICTERIC CHECK 0; SAMPLE LIPEMIA CHECK 0; SODIUM 128 MEQ/L (136-147); UREA NITROGEN (BUN) 57 mg/dL (9-23)
[2017-03-19 06:46] LABS: POINT-OF-CARE METER ID UU13113725
[2017-03-19 07:42] LABS: ABS NEUTROPHIL COUNT 8.7; ANISOCYTOSIS 2+; BAND NEUTROPHILS 0.9 % (0-8.0); BASOPHILS 0.9 %; EOSINOPHIL ABS CT 0.4; EOSINOPHILS 3.5 % (0-5.0); INSTRUMENT ABS NEUTROPHIL CT 7.8 K/uL; LYMPHOCYTES 5.2 % (15.0-45.0); MACROCYTES 2+; METAMYELOCYTES 2.6 %; PLAT.SUFFICIENCY ADEQUATE; SEG.NEUTROPHILS 78.1 % (46.0-76.0); SPHEROCYTES 1+
[2017-03-20 00:52] VITALS: BP 148/68
[2017-03-20 05:42] VITALS: BP 149/67
[2017-03-20 07:15] VITALS: BP 130/70
[2017-03-20] MEDS ORDERED: TRAMADOL HCL50 MG PO (09:51)
[2017-03-20 11:46] VITALS: BP 128/69
== END 2017-03-20 13:25 | DRG 280 ==
LOC: EME → EDBD 02:00 → EME 02:00 → EDOF 03:25 → 4WEST 03:25 → 4EAST 03:25 → 4WEST 06:01 → 4EAST 03-07 18:23 → ENRESERV 03-18 12:59 → 5EAST 03-18 14:49 → ENPENDDIS 03-20 13:00 → 5EAST 03-20 13:25
PROVIDERS: Emergency Medicine; Internal Medicine; Internal Medicine Nephrology; Nurse Practitioner Family
PROC: B2111ZZ Fluoroscopy of Multiple Coronary Arteries using Low Osmolar Contrast (ICD-10-PCS; principal; 2017-03-06)
PROC: 30233N1 Transfusion of Nonautologous Red Blood Cells into Peripheral Vein, Percutaneous Approach (ICD-10-PCS; 2017-03-08)
PROC: 4A023N7 Measurement of Cardiac Sampling and Pressure, Left Heart, Percutaneous Approach (ICD-10-PCS; 2017-03-10)
PROC: 5A1D60Z (ICD-10-PCS; 2017-03-10)
DX: I21.4 Non-ST elevation (NSTEMI) myocardial infarction (principal); J18.9 Pneumonia, unspecified organism; J44.0 Chronic obstructive pulmonary disease with (acute) lower respiratory infection; E11.22 Type 2 diabetes mellitus with diabetic chronic kidney disease; D63.1 Anemia in chronic kidney disease; I13.2 Hypertensive heart and chronic kidney disease with heart failure and with stage 5 chronic kidney disease, or end stage renal disease; E78.5 Hyperlipidemia, unspecified; I25.10 Atherosclerotic heart disease of native coronary artery without angina pectoris; I25.2 Old myocardial infarction; N18.6 End stage renal disease; Z99.2 Dependence on renal dialysis; Z87.891 Personal history of nicotine dependence; J96.01 Acute respiratory failure with hypoxia; M10.9 Gout, unspecified; J84.10 Pulmonary fibrosis, unspecified; D69.6 Thrombocytopenia, unspecified; I69.351 Hemiplegia and hemiparesis following cerebral infarction affecting right dominant side; K21.9 Gastro-esophageal reflux disease without esophagitis; Z66 Do not resuscitate; G93.41 Metabolic encephalopathy; I50.30 Unspecified diastolic (congestive) heart failure; J44.1 Chronic obstructive pulmonary disease with (acute) exacerbation
CPT/HCPCS: 36600; 70450; 71010; 71020; 71250; 78451; 80048; 80053; 80069; 80202; 82803; 82948; 83880; 84484; 85025; 86900; 86901; 86920; 87641; 93005; 94640; 94640 76; 94760; 94799; 97530 GP; 99202; 99281; 99285; A9500; C1760; C1769; C1887; C1894; J0456; J0461; J0692; J0696; J0881; J1644; J1815; J1940; J2250; J2930; J3010; J3370; J7050; J7512; P9016

== ENCOUNTER 2017-03-28 01:24 | Inpatient (IN) | payer OTHER ==
[~2017-03-28] VITALS: Ht 162.6 cm; Wt 64.8 kg
[2017-03-28 03:01] LABS: BASOPHIL COUNT 0.1 K/uL (0-0.1); EOSINOPHIL COUNT 0.2 K/uL (0-0.3); HEMATOCRIT 28.6 % (38.0-50.0); IMMATURE GRANULOCYTE (%) 0.9 % (0.0-0.7); IMMATURE GRANULOCYTE COUNT 0.2 K/uL; LYMPHOCYTE COUNT 0.7 K/uL (1.0-2.8); MCH 30.3 PG (29.0-34.0); MCHC 30.1 G/DL (30.0-36.0); MCV 100.7 FL (86-99); MONOCYTE (%) 5.5 % (3-12); MONOCYTE COUNT 0.9 K/uL (0-0.8); RBC DIS.WIDTH-CV 16.3 % (11.8-14.6); RBC DIS.WIDTH-SD 59.7 % (39-53); RED BLOOD COUNT 2.84 M/uL (4.00-5.50); WHITE BLOOD COUNT 17.1 K/uL (4.1-10.2)
[2017-03-28 03:02] LABS: CHLORIDE 95 mEq/L (99-109); SODIUM 140 mEq/L (136-147)
[2017-03-28 03:03] LABS: GLUCOSE 163 mg/dL (70-99)
[2017-03-28 03:05] LABS: ANION GAP 15 MEQ/L (2-14)
[2017-03-28 03:08] LABS: UREA NITROGEN (BUN) 37 mg/dL (9-23)
[2017-03-28 03:10] LABS: TROP-I INTERPRETATION NEGATIVE; TROPONIN-I 0.15 ng/mL (0.0-0.30)
[2017-03-28 03:11] LABS: GFR ESTIMATE (CALCULATED) 12 mL/min/; POTASSIUM 3.3 mEq/L (3.7-5.4)
[2017-03-28 03:36] LABS: MEAN PLAT.VOLUME 10.9 uM^3 (9.0-12.4); PLAT.SUFFICIENCY DECREASED; PLATELET COUNT 99 K/uL (156-360)
[2017-03-28 06:06] VITALS: BP 114/56
[2017-03-28 07:16] LABS: POINT-OF-CARE METER ID UU13113725
[2017-03-28 08:18] VITALS: BP 119/56
[2017-03-28 11:14] LABS: POINT-OF-CARE METER ID UU13113725
[2017-03-28 15:51] VITALS: BP 133/65
[2017-03-28 16:19] LABS: POINT-OF-CARE METER ID UU13113725
[2017-03-28 19:00] VITALS: BP 122/63
[2017-03-29 01:01] VITALS: BP 118/66
[2017-03-29 07:30] VITALS: BP 114/59
[2017-03-29 08:07] LABS: BASOPHIL COUNT 0.1 K/uL (0-0.1); EOSINOPHIL COUNT 0.1 K/uL (0-0.3); HEMATOCRIT 28.3 % (38.0-50.0); IMMATURE GRANULOCYTE (%) 0.6 % (0.0-0.7); IMMATURE GRANULOCYTE COUNT 0.1 K/uL; INSTRUMENT ABS NEUTROPHIL CT 10.6 K/uL; LYMPHOCYTE COUNT 0.7 K/uL (1.0-2.8); MCHC 31.4 G/DL (30.0-36.0); MCV 101.8 FL (86-99); MEAN PLAT.VOLUME 11.8 uM^3 (9.0-12.4); MONOCYTE (%) 7.5 % (3-12); MONOCYTE COUNT 0.9 K/uL (0-0.8); NEUTROPHIL (%) 84.9 % (45-76); NEUTROPHIL COUNT 10.6 K/uL (1.8-6.4); PLATELET COUNT 128 K/uL (156-360); RBC DIS.WIDTH-CV 16.4 % (11.8-14.6); RBC DIS.WIDTH-SD 60.6 % (39-53); RED BLOOD COUNT 2.78 M/uL (4.00-5.50); WHITE BLOOD COUNT 12.5 K/uL (4.1-10.2)
[2017-03-29 08:35] LABS: ANION GAP 13 MEQ/L (2-14); CHLORIDE 96 MEQ/L (99-109); GLUCOSE 142 mg/dL (70-99); SAMPLE HEMOLYSIS CHECK 0; SAMPLE ICTERIC CHECK 0; SAMPLE LIPEMIA CHECK 0; SODIUM 139 MEQ/L (136-147); UREA NITROGEN (BUN) 53 mg/dL (9-23)
[2017-03-29 08:38] LABS: GFR ESTIMATE (CALCULATED) 10 mL/min/; POTASSIUM 4.1 MEQ/L (3.7-5.4)
[2017-03-29 12:00] VITALS: BP 128/67
[2017-03-29 12:15] LABS: POINT-OF-CARE METER ID UU13113725
[2017-03-29 16:11] LABS: POINT-OF-CARE METER ID UU13113725
[2017-03-29 16:25] VITALS: BP 120/55
[2017-03-29 20:08] VITALS: BP 136/66
[2017-03-30 01:13] VITALS: BP 118/66
[2017-03-30 07:01] LABS: POINT-OF-CARE METER ID UU13113725
[2017-03-30 08:00] VITALS: BP 160/68
[2017-03-30 11:21] LABS: POINT-OF-CARE METER ID UU13113725
[2017-03-30 11:29] VITALS: BP 145/68
[2017-03-30 16:11] LABS: POINT-OF-CARE METER ID UU13113725
[2017-03-30 16:17] VITALS: BP 124/56
[2017-03-30 22:05] LABS: POINT-OF-CARE METER ID UU13113725
[2017-03-31] VITALS (7 sets, daily range): BP systolic 97–134; BP diastolic 43–66
[2017-03-31 05:58] LABS: POINT-OF-CARE METER ID UU13113725
[2017-03-31 08:12] LABS: HEMATOCRIT 24.8 % (38.0-50.0); MCH 32.1 PG (29.0-34.0); MCHC 31.5 G/DL (30.0-36.0); MCV 102.1 FL (86-99); MEAN PLAT.VOLUME 11.6 uM^3 (9.0-12.4); PLATELET COUNT 134 K/uL (156-360); RBC DIS.WIDTH-CV 15.8 % (11.8-14.6); RBC DIS.WIDTH-SD 59.6 % (39-53); RED BLOOD COUNT 2.43 M/uL (4.00-5.50); WHITE BLOOD COUNT 8.1 K/uL (4.1-10.2)
[2017-03-31 08:29] LABS: ANION GAP 14 MEQ/L (2-14); CHLORIDE 100 MEQ/L (99-109); POTASSIUM 4.6 MEQ/L (3.7-5.4); SAMPLE HEMOLYSIS CHECK 0; SAMPLE ICTERIC CHECK 0; SAMPLE LIPEMIA CHECK 0; SODIUM 138 MEQ/L (136-147)
[2017-03-31 08:34] LABS: GFR ESTIMATE (CALCULATED) 9 mL/min/; GLUCOSE 154 mg/dL (70-99); UREA NITROGEN (BUN) 74 mg/dL (9-23)
[2017-04-01 03:50] LABS: POINT-OF-CARE METER ID UU13113725
[2017-04-01 06:57] LABS: POINT-OF-CARE METER ID UU13113725
[2017-04-01 08:05] VITALS: BP 134/61
[2017-04-01 12:04] VITALS: BP 133/63
[2017-04-01 12:10] LABS: POINT-OF-CARE METER ID UU13113725
[2017-04-01] MEDS ORDERED: APRESOLINE25 MG PO (12:44)
[2017-04-01] MEDS ORDERED: IMDUR60 MG PO (12:44)
[2017-04-01] MEDS ORDERED: METOPROLOL SUCC50 MG PO (12:45)
[2017-04-01] MEDS ORDERED: COZAAR100 MG PO (12:46)
[2017-04-01] MEDS ORDERED: BUMETANIDE1 MG PO (12:48)
[2017-04-01] MEDS ORDERED: PREDNISONE10 MG PO (12:50)
[2017-04-01] MEDS ORDERED: DUONEB 2.5-0.5 M3 ML AEROSOL (12:51)
[2017-04-01] MEDS ORDERED: CEFTIN500 MG PO (12:52)
[2017-04-01 15:51] VITALS: BP 156/66
[2017-04-01 16:20] LABS: POINT-OF-CARE METER ID UU13113725
[2017-04-01 20:47] VITALS: BP 161/72
[2017-04-02 01:14] VITALS: BP 146/67
[2017-04-02 04:09] VITALS: BP 127/61
[2017-04-02 06:05] LABS: POINT-OF-CARE METER ID UU13113725
[2017-04-02 06:48] LABS: GFR ESTIMATE (CALCULATED) 9 mL/min/; VANCOMYCIN, TROUGH 12.5 MCG/ML (10-20)
[2017-04-02 08:03] VITALS: BP 133/79
[2017-04-02 08:10] LABS: EOSINOPHIL (%) 0 % (0-5); HEMATOCRIT 31.4 % (38.0-50.0); IMMATURE GRANULOCYTE (%) 0.8 % (0.0-0.7); IMMATURE GRANULOCYTE COUNT 0.1 K/uL; INSTRUMENT ABS NEUTROPHIL CT 7.1 K/uL; LYMPHOCYTE COUNT 0.7 K/uL (1.0-2.8); MCH 30.2 PG (29.0-34.0); MCHC 30.3 G/DL (30.0-36.0); MCV 99.7 FL (86-99); MEAN PLAT.VOLUME 11.6 uM^3 (9.0-12.4); MONOCYTE (%) 6.2 % (3-12); MONOCYTE COUNT 0.5 K/uL (0-0.8); NEUTROPHIL (%) 84.3 % (45-76); NEUTROPHIL COUNT 7.1 K/uL (1.8-6.4); RBC DIS.WIDTH-CV 15.7 % (11.8-14.6); RBC DIS.WIDTH-SD 57.9 % (39-53); WHITE BLOOD COUNT 8.4 K/uL (4.1-10.2)
[2017-04-02 08:14] LABS: PLATELET COUNT 184 K/uL (156-360); RED BLOOD COUNT 3.15 M/uL (4.00-5.50)
[2017-04-02 08:16] LABS: ANION GAP 16 MEQ/L (2-14); CHLORIDE 100 MEQ/L (99-109); GLUCOSE 159 mg/dL (70-99); POTASSIUM 4.7 MEQ/L (3.7-5.4); SODIUM 138 MEQ/L (136-147); UREA NITROGEN (BUN) 70 mg/dL (9-23)
[2017-04-02 15:42] LABS: POINT-OF-CARE METER ID UU13113725
== END 2017-04-02 16:16 | DRG 682 ==
LOC: EME → EDBD 01:24 → 5EAST 04:38 → EDOF 04:38 → ENRESERV 04:41 → EDOF 05:23 → 5EAST 05:43 → ENPENDDIS 04-02 16:00 → 5EAST 04-02 16:16
PROVIDERS: Emergency Medicine; Internal Medicine; Internal Medicine Nephrology
PROC: 5A1D60Z (ICD-10-PCS; principal; 2017-03-28)
DX: N18.6 End stage renal disease (principal); J44.0 Chronic obstructive pulmonary disease with (acute) lower respiratory infection; J18.9 Pneumonia, unspecified organism; J44.1 Chronic obstructive pulmonary disease with (acute) exacerbation; I50.22 Chronic systolic (congestive) heart failure; I13.2 Hypertensive heart and chronic kidney disease with heart failure and with stage 5 chronic kidney disease, or end stage renal disease; I69.351 Hemiplegia and hemiparesis following cerebral infarction affecting right dominant side; D63.1 Anemia in chronic kidney disease; I25.10 Atherosclerotic heart disease of native coronary artery without angina pectoris; E11.22 Type 2 diabetes mellitus with diabetic chronic kidney disease; G89.29 Other chronic pain; W06.XXXA Fall from bed, initial encounter; E87.6 Hypokalemia; M47.816 Spondylosis without myelopathy or radiculopathy, lumbar region; M10.9 Gout, unspecified; Z99.2 Dependence on renal dialysis; Z99.81 Dependence on supplemental oxygen; Z87.891 Personal history of nicotine dependence; R09.02 Hypoxemia; Z80.0 Family history of malignant neoplasm of digestive organs; I25.2 Old myocardial infarction
CPT/HCPCS: 71010; 71260; 80048; 80069; 80202; 82565; 82948; 83605; 83880; 84484; 85025; 85027; 87040; 93005; 94640; 94640 76; 94799; 99202; 99281; 99285; J0456; J0692; J0881; J1644; J1815; J1956; J3370; J7050; J7512; S0073

== ENCOUNTER 2017-04-07 12:38 | Inpatient (IN) | payer OTHER ==
[~2017-04-07] VITALS: Ht 162.6 cm; Wt 65.7 kg
[~2017-04-07 12:38] MED LIST changes: +BUMETANIDE1 MG PO; +CEFTIN500 MG PO; +COZAAR100 MG PO; +DUONEB 2.5-0.5 M3 ML AEROSOL; +METOPROLOL SUCC50 MG PO; +PREDNISONE10 MG PO
[2017-04-07 13:55] LABS: HEMATOCRIT 29.8 % (38.0-50.0); MCHC 31.2 G/DL (30.0-36.0); MCV 99.3 FL (86-99); NRBC (%) 0.5 /100 WBC (0-0); PLATELET COUNT 162 K/uL (156-360); RBC DIS.WIDTH-CV 16.7 % (11.8-14.6); RBC DIS.WIDTH-SD 56.8 % (39-53); WHITE BLOOD COUNT 17.7 K/uL (4.1-10.2)
[2017-04-07 14:01] LABS: PROTHROMBIN TIME 11.2 SEC (10.2-12.9)
[2017-04-07 14:04] LABS: PTT 25.4 SEC (25-37)
[2017-04-07 14:07] LABS: CHLORIDE 101 mEq/L (99-109); POTASSIUM 4.4 mEq/L (3.7-5.4); SODIUM 140 mEq/L (136-147)
[2017-04-07 14:09] LABS: GLUCOSE 188 mg/dL (70-99)
[2017-04-07 14:10] LABS: ANION GAP 13 MEQ/L (2-14)
[2017-04-07 14:13] LABS: GFR ESTIMATE (CALCULATED) 10 mL/min/
[2017-04-07 14:14] LABS: UREA NITROGEN (BUN) 88 mg/dL (9-23)
[2017-04-07 14:36] LABS: TROP-I INTERPRETATION POSITIVE; TROPONIN-I 1.35 ng/mL (0.0-0.30)
[2017-04-07] MEDS ORDERED: PREDNISONE10 MG PO (16:21)
[2017-04-07] MEDS ORDERED: BUMETANIDE2 MG PO (16:24)
[2017-04-07] MEDS ORDERED: TRICOR48 MG PO (16:26)
[2017-04-07] MEDS ORDERED: PROTONIX40 MG PO (16:27)
[2017-04-07] MEDS ORDERED: TYLENOL REGULA325 MG PO (16:29)
[2017-04-07] MEDS ORDERED: DULCOLAX10 MG PR (16:30)
[2017-04-07] MEDS ORDERED: FLEET ENEMA-AD118 ML PR (16:30)
[2017-04-07 20:50] VITALS: BP 148/70
[2017-04-07 21:59] LABS: TROP-I INTERPRETATION POSITIVE; TROPONIN-I 1.07 ng/mL (0.0-0.30)
[2017-04-07 22:01] LABS: CREATINE KINASE 38 IU/L (1-294); TOTAL CK 38 IU/L (1-294)
[2017-04-07 22:22] LABS: CK-MB 6.9 ng/mL (0.0-4.9)
[2017-04-07 23:00] VITALS: BP 120/56
[2017-04-08 04:52] VITALS: BP 131/60
[2017-04-08 05:44] LABS: HEMATOCRIT 28.8 % (38.0-50.0); MCH 31.9 PG (29.0-34.0); MCHC 31.3 G/DL (30.0-36.0); MCV 102.1 FL (86-99); MEAN PLAT.VOLUME 11.6 uM^3 (9.0-12.4); NRBC (%) 0.4 /100 WBC (0-0); PLATELET COUNT 162 K/uL (156-360); RBC DIS.WIDTH-CV 17.1 % (11.8-14.6); RBC DIS.WIDTH-SD 60.6 % (39-53); RED BLOOD COUNT 2.82 M/uL (4.00-5.50); WHITE BLOOD COUNT 15.6 K/uL (4.1-10.2)
[2017-04-08 06:13] LABS: CREATINE KINASE 41 IU/L (1-294); TOTAL CK 41 IU/L (1-294)
[2017-04-08 06:28] LABS: ABS NEUTROPHIL COUNT 12.9; ANISOCYTOSIS 2+; BAND NEUTROPHILS 0.9 % (0-8.0); BURR CELLS 1+; EOSINOPHIL ABS CT 0.3; EOSINOPHILS 1.9 % (0-5.0); INSTRUMENT ABS NEUTROPHIL CT 11.1 K/uL; LYMPHOCYTES 10.2 % (15.0-45.0); MACROCYTES 2+; METAMYELOCYTES 0.9 %; PLAT.SUFFICIENCY ADEQUATE; POIKILOCYTOSIS 1+; POLYCHROMASIA 1+; SEG.NEUTROPHILS 81.5 % (46.0-76.0); TEAR DROP CELLS 1+
[2017-04-08 07:19] LABS: TROP-I INTERPRETATION POSITIVE; TROPONIN-I 1.02 ng/mL (0.0-0.30)
[2017-04-08 07:26] VITALS: BP 137/64
[2017-04-08 07:37] LABS: CK-MB 7.5 ng/mL (0.0-4.9)
[2017-04-08 11:35] VITALS: BP 141/67
[2017-04-08 16:16] VITALS: BP 138/65
[2017-04-08 19:12] LABS: INTER. NORMALIZED RATIO 1.1; PROTHROMBIN TIME 12.1 SEC (10.2-12.9)
[2017-04-08 19:15] LABS: PTT 67.7 SEC (25-37)
[2017-04-08 20:00] VITALS: BP 138/64
[2017-04-08 23:55] VITALS: BP 139/65
[2017-04-09 03:54] LABS: HEMATOCRIT 30.9 % (38.0-50.0); MCH 30.9 PG (29.0-34.0); MCHC 30.4 G/DL (30.0-36.0); MCV 101.6 FL (86-99); MEAN PLAT.VOLUME 11.3 uM^3 (9.0-12.4); NRBC (%) 0.2 /100 WBC (0-0); PLATELET COUNT 172 K/uL (156-360); RBC DIS.WIDTH-CV 17.1 % (11.8-14.6); RBC DIS.WIDTH-SD 59.1 % (39-53); RED BLOOD COUNT 3.04 M/uL (4.00-5.50); WHITE BLOOD COUNT 18.8 K/uL (4.1-10.2)
[2017-04-09 04:00] VITALS: BP 142/67
[2017-04-09 04:03] LABS: CHLORIDE 98 mEq/L (99-109); SODIUM 137 mEq/L (136-147)
[2017-04-09 04:04] LABS: POTASSIUM 5.4 mEq/L (3.7-5.4)
[2017-04-09 04:05] LABS: GLUCOSE 153 mg/dL (70-99)
[2017-04-09 04:06] LABS: ANION GAP 16 MEQ/L (2-14)
[2017-04-09 04:09] LABS: GFR ESTIMATE (CALCULATED) 8 mL/min/
[2017-04-09 04:11] LABS: UREA NITROGEN (BUN) 113 mg/dL (9-23)
[2017-04-09 04:56] LABS: ABS NEUTROPHIL COUNT 15.2; ANISOCYTOSIS 2+; ATYPICAL LYMPHOCYTE 3.5 %; BAND NEUTROPHILS 1.7 % (0-8.0); EOSINOPHIL ABS CT 0.2; EOSINOPHILS 0.9 % (0-5.0); HEMATOLOGY COMMENT 1 OTHER=PLASMA CELLS; INSTRUMENT ABS NEUTROPHIL CT 14.6 K/uL; LYMPHOCYTES 4.4 % (15.0-45.0); MACROCYTES 2+; METAMYELOCYTES 0.9 %; MYELOCYTES 1.7 %; PLAT.SUFFICIENCY ADEQUATE; POIKILOCYTOSIS 2+; SEG.NEUTROPHILS 79.1 % (46.0-76.0)
[2017-04-09 12:00] VITALS: BP 128/74
[2017-04-09 17:36] VITALS: BP 113/58
[2017-04-09 20:00] VITALS: BP 123/58
[2017-04-09 23:55] VITALS: BP 124/58
[2017-04-10 04:06] VITALS: BP 136/65
[2017-04-10 06:48] LABS: EOSINOPHIL (%) 2.1 % (0-5); EOSINOPHIL COUNT 0.2 K/uL (0-0.3); HEMATOCRIT 27.5 % (38.0-50.0); IMMATURE GRANULOCYTE (%) 3.3 % (0.0-0.7); IMMATURE GRANULOCYTE COUNT 0.4 K/uL; INSTRUMENT ABS NEUTROPHIL CT 8.7 K/uL; LYMPHOCYTE COUNT 0.9 K/uL (1.0-2.8); MCH 31.9 PG (29.0-34.0); MCHC 31.3 G/DL (30.0-36.0); MCV 101.9 FL (86-99); MONOCYTE (%) 7.1 % (3-12); MONOCYTE COUNT 0.8 K/uL (0-0.8); NEUTROPHIL (%) 78.9 % (45-76); NEUTROPHIL COUNT 8.7 K/uL (1.8-6.4); RBC DIS.WIDTH-CV 17.5 % (11.8-14.6); RBC DIS.WIDTH-SD 60.8 % (39-53); WHITE BLOOD COUNT 11.1 K/uL (4.1-10.2)
[2017-04-10 06:57] LABS: ANION GAP 13 MEQ/L (2-14); CHLORIDE 99 MEQ/L (99-109); GFR ESTIMATE (CALCULATED) 11 mL/min/; SAMPLE HEMOLYSIS CHECK 0; SAMPLE ICTERIC CHECK 0; SAMPLE LIPEMIA CHECK 0; SODIUM 138 MEQ/L (136-147); UREA NITROGEN (BUN) 80 mg/dL (9-23)
[2017-04-10 06:59] LABS: GLUCOSE 105 mg/dL (70-99)
[2017-04-10 07:34] LABS: MEAN PLAT.VOLUME 11.7 uM^3 (9.0-12.4); PLAT.SUFFICIENCY DECREASED
[2017-04-10 07:59] LABS: PLATELET COUNT 119 K/uL (156-360)
[2017-04-10 08:00] VITALS: BP 121/54
[2017-04-10 12:31] LABS: HBSG INDEX 0.17; HEPATITIS B SURFACE ANTIBODY Nonreactive
[2017-04-10 12:38] VITALS: BP 121/58
[2017-04-10 16:49] VITALS: BP 126/57
[2017-04-10 20:15] VITALS: BP 139/66
[2017-04-10 23:48] VITALS: BP 142/67
[2017-04-11 04:25] VITALS: BP 134/67
[2017-04-11 05:47] LABS: EOSINOPHIL (%) 2.2 % (0-5); EOSINOPHIL COUNT 0.3 K/uL (0-0.3); HEMATOCRIT 27.8 % (38.0-50.0); IMMATURE GRANULOCYTE (%) 1.3 % (0.0-0.7); IMMATURE GRANULOCYTE COUNT 0.2 K/uL; LYMPHOCYTE COUNT 0.8 K/uL (1.0-2.8); MCH 31.4 PG (29.0-34.0); MCHC 30.9 G/DL (30.0-36.0); MCV 101.5 FL (86-99); MEAN PLAT.VOLUME 11.3 uM^3 (9.0-12.4); MONOCYTE (%) 5.8 % (3-12); MONOCYTE COUNT 0.8 K/uL (0-0.8); NEUTROPHIL (%) 84.8 % (45-76); PLATELET COUNT 125 K/uL (156-360); RBC DIS.WIDTH-CV 17.2 % (11.8-14.6); RBC DIS.WIDTH-SD 61.9 % (39-53); RED BLOOD COUNT 2.74 M/uL (4.00-5.50)
[2017-04-11 08:03] VITALS: BP 137/64
[2017-04-11 11:42] VITALS: BP 123/63
== END 2017-04-11 14:35 | disposition short-term general hospital (02) | DRG 280 ==
LOC: EME 12:38 → EDOF 17:06 → 4EAST 17:06 → CANRESERV 17:47 → ENRESERV 17:47 → 4EAST 19:51
PROVIDERS: Emergency Medicine; Family Medicine; Internal Medicine; Internal Medicine Nephrology
PROC: 5A1D00Z (ICD-10-PCS; principal; 2017-04-09)
DX: I21.4 Non-ST elevation (NSTEMI) myocardial infarction (principal); N18.6 End stage renal disease; I47.2 Ventricular tachycardia; I50.22 Chronic systolic (congestive) heart failure; I69.351 Hemiplegia and hemiparesis following cerebral infarction affecting right dominant side; J44.9 Chronic obstructive pulmonary disease, unspecified; E11.22 Type 2 diabetes mellitus with diabetic chronic kidney disease; E78.5 Hyperlipidemia, unspecified; I12.9 Hypertensive chronic kidney disease with stage 1 through stage 4 chronic kidney disease, or unspecified chronic kidney disease; D63.8 Anemia in other chronic diseases classified elsewhere; M47.816 Spondylosis without myelopathy or radiculopathy, lumbar region; K59.00 Constipation, unspecified; I25.110 Atherosclerotic heart disease of native coronary artery with unstable angina pectoris; M10.9 Gout, unspecified; Z99.2 Dependence on renal dialysis; Z79.82 Long term (current) use of aspirin; Z88.0 Allergy status to penicillin; Z88.8 Allergy status to other drugs, medicaments and biological substances; Z87.891 Personal history of nicotine dependence; I25.2 Old myocardial infarction
CPT/HCPCS: 71010; 71020; 80048; 82550; 82550 91; 82553; 82948; 84484; 85025; 85027; 85610; 85730; 86706; 87340; 93005; 94640; 94640 76; 99202; 99281; 99285; J1644; J1815; J7512

== ENCOUNTER 2017-05-21 05:15 | Inpatient (IN) | payer OTHER ==
[~2017-05-21] VITALS: Ht 162.6 cm; Wt 59.6 kg
[~2017-05-21 05:15] MED LIST changes: +ASPIRIN81 M2 PO; +ATIVAN0.5 MG PO; +BUMETANIDE2 MG PO; +COLACE100 MG PO; +DULCOLAX10 MG PR; +FLEET ENEMA-AD118 ML PR; +FUROSEMIDE20 MG PO; +OXYCODONE HCL5 M1 PO; +PROTONIX40 MG PO; +RENVELA800 MG PO; +SENNA PLUS TAB1 EACH PO; +TOPROL XL50 MG PO; +TRICOR48 MG PO; +TYLENOL REGULA325 MG PO
[2017-05-21 06:17] LABS: HEMATOCRIT 37.5 % (38.0-50.0); MCH 28.8 PG (29.0-34.0); MCHC 29.6 G/DL (30.0-36.0); MCV 97.2 FL (86-99); MEAN PLAT.VOLUME 9.4 uM^3 (9.0-12.4); PLATELET COUNT 199 K/uL (156-360); RBC DIS.WIDTH-CV 18.6 % (11.8-14.6); RBC DIS.WIDTH-SD 65.6 % (39-53); RED BLOOD COUNT 3.86 M/uL (4.00-5.50); WHITE BLOOD COUNT 7.9 K/uL (4.1-10.2)
[2017-05-21 06:28] LABS: CHLORIDE 95 mEq/L (99-109); POTASSIUM 4.5 mEq/L (3.7-5.4); SODIUM 138 mEq/L (136-147)
[2017-05-21 06:30] LABS: GLUCOSE 123 mg/dL (70-99)
[2017-05-21 06:31] LABS: ANION GAP 15 MEQ/L (2-14)
[2017-05-21 06:34] LABS: GFR ESTIMATE (CALCULATED) 12 mL/min/
[2017-05-21 06:35] LABS: UREA NITROGEN (BUN) 64 mg/dL (9-23)
[2017-05-21 06:36] LABS: INTER. NORMALIZED RATIO 1.2; PROTHROMBIN TIME 12.8 SEC (10.2-12.9)
[2017-05-21 06:39] LABS: PTT 29.1 SEC (25-37)
[2017-05-21 09:00] VITALS: BP 134/74
[2017-05-21 12:13] VITALS: BP 146/68
[2017-05-21] MEDS ORDERED: ATIVAN0.5 MG PO (16:04)
[2017-05-21] MEDS ORDERED: TRAMADOL HCL50 MG PO (16:06)
[2017-05-21] MEDS ORDERED: ASPIRIN81 M2 PO (16:08)
[2017-05-21] MEDS ORDERED: CLOPIDOGREL75 MG PO (16:10)
[2017-05-21 16:41] LABS: POINT-OF-CARE METER ID UU14208753
[2017-05-21 16:53] VITALS: BP 141/65
[2017-05-21 19:53] VITALS: BP 128/67
[2017-05-21 21:08] LABS: POINT-OF-CARE METER ID UU14117124
[2017-05-22] VITALS (7 sets, daily range): BP systolic 120–150; BP diastolic 64–75
[2017-05-22 05:47] LABS: EOSINOPHIL (%) 2.2 % (0-5); EOSINOPHIL COUNT 0.2 K/uL (0-0.3); HEMATOCRIT 34.1 % (38.0-50.0); IMMATURE GRANULOCYTE (%) 0.6 % (0.0-0.7); IMMATURE GRANULOCYTE COUNT 0.1 K/uL; INSTRUMENT ABS NEUTROPHIL CT 6.8 K/uL; LYMPHOCYTE COUNT 0.9 K/uL (1.0-2.8); MCH 29.7 PG (29.0-34.0); MCHC 30.5 G/DL (30.0-36.0); MCV 97.4 FL (86-99); MEAN PLAT.VOLUME 9.9 uM^3 (9.0-12.4); MONOCYTE (%) 12.7 % (3-12); MONOCYTE COUNT 1.2 K/uL (0-0.8); NEUTROPHIL (%) 74.6 % (45-76); NEUTROPHIL COUNT 6.8 K/uL (1.8-6.4); PLATELET COUNT 199 K/uL (156-360); RBC DIS.WIDTH-CV 18.4 % (11.8-14.6); RBC DIS.WIDTH-SD 65.1 % (39-53); WHITE BLOOD COUNT 9.1 K/uL (4.1-10.2)
[2017-05-22 06:07] LABS: ALKALINE PHOSPHATASE 97 IU/L (3-129); ANION GAP 16 MEQ/L (2-14); CHLORIDE 95 MEQ/L (99-109); GLUCOSE 131 mg/dL (70-99); POTASSIUM 5.3 MEQ/L (3.7-5.4); SAMPLE HEMOLYSIS CHECK 0; SAMPLE ICTERIC CHECK 0; SAMPLE LIPEMIA CHECK 0; SODIUM 138 MEQ/L (136-147); TOTAL BILIRUBIN 0.6 MG/DL (0.0-1.0); UREA NITROGEN (BUN) 86 mg/dL (9-23)
[2017-05-22 06:09] LABS: GFR ESTIMATE (CALCULATED) 10 mL/min/
[2017-05-22 06:25] LABS: POINT-OF-CARE METER ID UU14117124
[2017-05-22 12:12] LABS: POINT-OF-CARE METER ID UU14117124
[2017-05-22 16:49] LABS: POINT-OF-CARE METER ID UU14117124
[2017-05-22 21:35] LABS: POINT-OF-CARE METER ID UU14208753
[2017-05-23 03:20] VITALS: BP 131/74
[2017-05-23 05:34] LABS: ANION GAP 17 MEQ/L (2-14); CHLORIDE 97 MEQ/L (99-109); POTASSIUM 5.8 MEQ/L (3.7-5.4); SAMPLE HEMOLYSIS CHECK 0; SAMPLE ICTERIC CHECK 0; SAMPLE LIPEMIA CHECK 0; SODIUM 135 MEQ/L (136-147)
[2017-05-23 05:41] LABS: GLUCOSE 108 mg/dL (70-99)
[2017-05-23 05:42] LABS: GFR ESTIMATE (CALCULATED) 9 mL/min/
[2017-05-23 05:50] LABS: UREA NITROGEN (BUN) 101 mg/dL (9-23)
[2017-05-23 06:17] LABS: POINT-OF-CARE METER ID UU14188577
[2017-05-23 08:53] LABS: EOSINOPHIL (%) 2.3 % (0-5); EOSINOPHIL COUNT 0.2 K/uL (0-0.3); IMMATURE GRANULOCYTE (%) 0.5 % (0.0-0.7); INSTRUMENT ABS NEUTROPHIL CT 6.9 K/uL; LYMPHOCYTE COUNT 0.6 K/uL (1.0-2.8); MCH 28.6 PG (29.0-34.0); MCHC 29.4 G/DL (30.0-36.0); MCV 97.3 FL (86-99); MEAN PLAT.VOLUME 10.5 uM^3 (9.0-12.4); MONOCYTE (%) 9.5 % (3-12); MONOCYTE COUNT 0.8 K/uL (0-0.8); NEUTROPHIL (%) 80.3 % (45-76); NEUTROPHIL COUNT 6.9 K/uL (1.8-6.4); PLATELET COUNT 196 K/uL (156-360); RBC DIS.WIDTH-CV 18.1 % (11.8-14.6); RBC DIS.WIDTH-SD 64.2 % (39-53); RED BLOOD COUNT 3.39 M/uL (4.00-5.50); WHITE BLOOD COUNT 8.6 K/uL (4.1-10.2)
[2017-05-23 11:30] VITALS: BP 144/63
[2017-05-23 11:43] LABS: POINT-OF-CARE METER ID UU14208753
[2017-05-23 19:58] VITALS: BP 117/75
[2017-05-24 00:14] VITALS: BP 120/70
[2017-05-24 06:33] LABS: ANION GAP 13 MEQ/L (2-14); CHLORIDE 95 MEQ/L (99-109); GFR ESTIMATE (CALCULATED) 13 mL/min/; GLUCOSE 98 mg/dL (70-99); POTASSIUM 5.1 MEQ/L (3.7-5.4); SAMPLE HEMOLYSIS CHECK 0; SAMPLE ICTERIC CHECK 0; SAMPLE LIPEMIA CHECK 0; SODIUM 137 MEQ/L (136-147); UREA NITROGEN (BUN) 56 mg/dL (9-23)
[2017-05-24 08:34] VITALS: BP 136/65
[2017-05-24 13:04] VITALS: BP 136/63
[2017-05-24 16:59] VITALS: BP 132/60
[2017-05-24 18:51] LABS: C DIFF TOXIN POSITIVE (NEGATIVE)
[2017-05-24 18:55] LABS: PROBE CHECK PASS; SPECIMEN PROCESSING CONTROL PASS
[2017-05-24 23:01] VITALS: BP 117/53
[2017-05-25 06:36] LABS: ALKALINE PHOSPHATASE 93 IU/L (3-129); ANION GAP 15 MEQ/L (2-14); CHLORIDE 95 MEQ/L (99-109); GLUCOSE 146 mg/dL (70-99); POTASSIUM 4.9 MEQ/L (3.7-5.4); SAMPLE HEMOLYSIS CHECK 0; SAMPLE ICTERIC CHECK 0; SAMPLE LIPEMIA CHECK 0; SODIUM 136 MEQ/L (136-147); UREA NITROGEN (BUN) 79 mg/dL (9-23)
[2017-05-25 06:37] LABS: GFR ESTIMATE (CALCULATED) 10 mL/min/; TOTAL BILIRUBIN 0.4 MG/DL (0.0-1.0)
[2017-05-25 08:10] LABS: EOSINOPHIL COUNT 0.3 K/uL (0-0.3); HEMATOCRIT 32.5 % (38.0-50.0); IMMATURE GRANULOCYTE (%) 0.6 % (0.0-0.7); IMMATURE GRANULOCYTE COUNT 0.1 K/uL; INSTRUMENT ABS NEUTROPHIL CT 6.9 K/uL; LYMPHOCYTE COUNT 0.7 K/uL (1.0-2.8); MCH 29.9 PG (29.0-34.0); MCHC 30.8 G/DL (30.0-36.0); MEAN PLAT.VOLUME 10.6 uM^3 (9.0-12.4); MONOCYTE (%) 9.8 % (3-12); MONOCYTE COUNT 0.9 K/uL (0-0.8); NEUTROPHIL COUNT 6.9 K/uL (1.8-6.4); PLATELET COUNT 202 K/uL (156-360); RBC DIS.WIDTH-CV 17.8 % (11.8-14.6); RBC DIS.WIDTH-SD 63.7 % (39-53); RED BLOOD COUNT 3.35 M/uL (4.00-5.50); WHITE BLOOD COUNT 8.9 K/uL (4.1-10.2)
[2017-05-25 16:03] VITALS: BP 126/74
[2017-05-25 23:26] VITALS: BP 125/57
[2017-05-26 03:20] VITALS: BP 122/57
[2017-05-26 05:25] LABS: CHLORIDE 98 mEq/L (99-109); POTASSIUM 5.2 mEq/L (3.7-5.4); SODIUM 136 mEq/L (136-147)
[2017-05-26 05:27] LABS: GLUCOSE 97 mg/dL (70-99)
[2017-05-26 05:29] LABS: ANION GAP 12 MEQ/L (2-14)
[2017-05-26 05:31] LABS: GFR ESTIMATE (CALCULATED) 12 mL/min/
[2017-05-26 05:32] LABS: UREA NITROGEN (BUN) 69 mg/dL (9-23)
[2017-05-26 07:48] VITALS: BP 132/63
[2017-05-26 15:43] VITALS: BP 138/66
[2017-05-26 19:40] VITALS: BP 159/70
[2017-05-27 00:14] VITALS: BP 140/68
[2017-05-27 03:06] VITALS: BP 140/68
[2017-05-27 06:22] LABS: HEMATOCRIT 35.2 % (38.0-50.0); MCH 28.1 PG (29.0-34.0); MCHC 29.3 G/DL (30.0-36.0); MCV 96.2 FL (86-99); MEAN PLAT.VOLUME 9.9 uM^3 (9.0-12.4); PLATELET COUNT 193 K/uL (156-360); RBC DIS.WIDTH-CV 17.3 % (11.8-14.6); RBC DIS.WIDTH-SD 62.3 % (39-53); RED BLOOD COUNT 3.66 M/uL (4.00-5.50); WHITE BLOOD COUNT 7.1 K/uL (4.1-10.2)
[2017-05-27 07:21] LABS: ALKALINE PHOSPHATASE 96 IU/L (3-129); ANION GAP 12 MEQ/L (2-14); CHLORIDE 98 MEQ/L (99-109); GFR ESTIMATE (CALCULATED) 15 mL/min/; GLUCOSE 146 mg/dL (70-99); POTASSIUM 4.7 MEQ/L (3.7-5.4); SAMPLE HEMOLYSIS CHECK 0; SAMPLE ICTERIC CHECK 0; SAMPLE LIPEMIA CHECK 0; SODIUM 139 MEQ/L (136-147); TOTAL BILIRUBIN 0.4 MG/DL (0.0-1.0); UREA NITROGEN (BUN) 49 mg/dL (9-23)
[2017-05-27 07:51] VITALS: BP 128/60
[2017-05-27 11:48] VITALS: BP 130/76
[2017-05-27 16:16] VITALS: BP 134/70
[2017-05-27 20:17] VITALS: BP 146/72
[2017-05-28] VITALS (7 sets, daily range): BP systolic 118–177; BP diastolic 58–94
[2017-05-28 08:44] LABS: BASOPHIL COUNT 0.1 K/uL (0-0.1); EOSINOPHIL (%) 4.5 % (0-5); EOSINOPHIL COUNT 0.4 K/uL (0-0.3); HEMATOCRIT 35.9 % (38.0-50.0); IMMATURE GRANULOCYTE (%) 0.6 % (0.0-0.7); IMMATURE GRANULOCYTE COUNT 0.1 K/uL; INSTRUMENT ABS NEUTROPHIL CT 6.1 K/uL; LYMPHOCYTE COUNT 0.9 K/uL (1.0-2.8); MCH 28.2 PG (29.0-34.0); MCHC 29.2 G/DL (30.0-36.0); MCV 96.2 FL (86-99); MEAN PLAT.VOLUME 10.2 uM^3 (9.0-12.4); MONOCYTE (%) 8.2 % (3-12); MONOCYTE COUNT 0.7 K/uL (0-0.8); NEUTROPHIL (%) 74.3 % (45-76); NEUTROPHIL COUNT 6.1 K/uL (1.8-6.4); PLATELET COUNT 206 K/uL (156-360); RBC DIS.WIDTH-CV 17.3 % (11.8-14.6); RBC DIS.WIDTH-SD 61.9 % (39-53); RED BLOOD COUNT 3.73 M/uL (4.00-5.50); WHITE BLOOD COUNT 8.2 K/uL (4.1-10.2)
[2017-05-28 09:13] LABS: ALKALINE PHOSPHATASE 94 IU/L (3-129); ANION GAP 12 MEQ/L (2-14); CHLORIDE 98 MEQ/L (99-109); GFR ESTIMATE (CALCULATED) 11 mL/min/; GLUCOSE 139 mg/dL (70-99); POTASSIUM 5.5 MEQ/L (3.7-5.4); SAMPLE HEMOLYSIS CHECK 0; SAMPLE ICTERIC CHECK 0; SAMPLE LIPEMIA CHECK 0; SODIUM 134 MEQ/L (136-147); TOTAL BILIRUBIN 0.4 MG/DL (0.0-1.0)
[2017-05-28 09:18] LABS: UREA NITROGEN (BUN) 76 mg/dL (9-23)
[2017-05-29 04:34] VITALS: BP 132/74
[2017-05-29 07:26] VITALS: BP 135/68
[2017-05-29 16:20] VITALS: BP 132/63
[2017-05-29 23:29] VITALS: BP 141/64
[2017-05-30 07:49] VITALS: BP 140/71
[2017-05-30 09:32] LABS: HEMATOCRIT 36.9 % (38.0-50.0); MCH 28.8 PG (29.0-34.0); MCHC 30.1 G/DL (30.0-36.0); MCV 95.8 FL (86-99); MEAN PLAT.VOLUME 10.1 uM^3 (9.0-12.4); PLATELET COUNT 199 K/uL (156-360); RBC DIS.WIDTH-CV 17.2 % (11.8-14.6); RBC DIS.WIDTH-SD 60.6 % (39-53); RED BLOOD COUNT 3.85 M/uL (4.00-5.50)
[2017-05-30 09:58] LABS: ALKALINE PHOSPHATASE 99 IU/L (3-129); ANION GAP 12 MEQ/L (2-14); CHLORIDE 98 MEQ/L (99-109); GFR ESTIMATE (CALCULATED) 10 mL/min/; GLUCOSE 148 mg/dL (70-99); POTASSIUM 5.8 MEQ/L (3.7-5.4); SAMPLE HEMOLYSIS CHECK 1; SAMPLE ICTERIC CHECK 0; SAMPLE LIPEMIA CHECK 0; SODIUM 137 MEQ/L (136-147); TOTAL BILIRUBIN 0.4 MG/DL (0.0-1.0); UREA NITROGEN (BUN) 76 mg/dL (9-23)
[2017-05-30 15:27] VITALS: BP 153/72
[2017-05-30 23:44] VITALS: BP 139/69
[2017-05-31 08:01] LABS: BASOPHIL COUNT 0.1 K/uL (0-0.1); EOSINOPHIL (%) 3.5 % (0-5); EOSINOPHIL COUNT 0.3 K/uL (0-0.3); HEMATOCRIT 34.9 % (38.0-50.0); IMMATURE GRANULOCYTE (%) 0.6 % (0.0-0.7); IMMATURE GRANULOCYTE COUNT 0.1 K/uL; INSTRUMENT ABS NEUTROPHIL CT 7.6 K/uL; LYMPHOCYTE COUNT 0.8 K/uL (1.0-2.8); MCH 29.6 PG (29.0-34.0); MCHC 30.9 G/DL (30.0-36.0); MCV 95.6 FL (86-99); MEAN PLAT.VOLUME 10.4 uM^3 (9.0-12.4); MONOCYTE (%) 5.8 % (3-12); MONOCYTE COUNT 0.6 K/uL (0-0.8); NEUTROPHIL (%) 81.2 % (45-76); NEUTROPHIL COUNT 7.6 K/uL (1.8-6.4); PLATELET COUNT 195 K/uL (156-360); RBC DIS.WIDTH-CV 17.4 % (11.8-14.6); RBC DIS.WIDTH-SD 62.4 % (39-53); RED BLOOD COUNT 3.65 M/uL (4.00-5.50); WHITE BLOOD COUNT 9.4 K/uL (4.1-10.2)
[2017-05-31 08:28] LABS: ANION GAP 13 MEQ/L (2-14); CHLORIDE 97 MEQ/L (99-109); GLUCOSE 214 mg/dL (70-99); SAMPLE HEMOLYSIS CHECK 0; SAMPLE ICTERIC CHECK 0; SAMPLE LIPEMIA CHECK 0; SODIUM 134 MEQ/L (136-147); UREA NITROGEN (BUN) 96 mg/dL (9-23)
[2017-05-31 08:31] LABS: GFR ESTIMATE (CALCULATED) 8 mL/min/; POTASSIUM 6.3 MEQ/L (3.7-5.4)
[2017-05-31 09:58] LABS: HBSG INDEX 0.42
[2017-05-31 16:58] VITALS: BP 158/68
[2017-05-31 17:04] LABS: POINT-OF-CARE METER ID UU14117124
[2017-05-31 23:45] VITALS: BP 138/74
[2017-06-01 06:31] LABS: ALKALINE PHOSPHATASE 93 IU/L (3-129); ANION GAP 11 MEQ/L (2-14); CHLORIDE 95 MEQ/L (99-109); GFR ESTIMATE (CALCULATED) 12 mL/min/; GLUCOSE 134 mg/dL (70-99); POTASSIUM 5.7 MEQ/L (3.7-5.4); SAMPLE HEMOLYSIS CHECK 0; SAMPLE ICTERIC CHECK 0; SAMPLE LIPEMIA CHECK 0; SODIUM 132 MEQ/L (136-147); TOTAL BILIRUBIN 0.4 MG/DL (0.0-1.0); UREA NITROGEN (BUN) 68 mg/dL (9-23)
[2017-06-01 06:59] LABS: POINT-OF-CARE METER ID UU14117124
[2017-06-01 07:45] LABS: Estimated Average Glucose 117 mg/dL (70-123); HEMOGLOBIN A1c (GLYCOHEMOGLOB) 5.7 % HGB (Below 5.7)
[2017-06-01 08:19] VITALS: BP 136/70
[2017-06-01 11:59] VITALS: BP 120/48
[2017-06-01 16:05] VITALS: BP 98/52
[2017-06-01 16:26] LABS: POINT-OF-CARE METER ID UU14117124
[2017-06-01 18:22] LABS: POINT-OF-CARE METER ID UU14117124
[2017-06-01 19:22] VITALS: BP 130/61
[2017-06-01 21:30] LABS: POINT-OF-CARE METER ID UU14117124
[2017-06-02 00:28] VITALS: BP 135/65
[2017-06-02 06:40] LABS: BASOPHIL COUNT 0.1 K/uL (0-0.1); EOSINOPHIL (%) 4.4 % (0-5); EOSINOPHIL COUNT 0.4 K/uL (0-0.3); HEMATOCRIT 36.4 % (38.0-50.0); IMMATURE GRANULOCYTE (%) 0.6 % (0.0-0.7); IMMATURE GRANULOCYTE COUNT 0.1 K/uL; INSTRUMENT ABS NEUTROPHIL CT 7.7 K/uL; LYMPHOCYTE COUNT 1.1 K/uL (1.0-2.8); MCH 28.3 PG (29.0-34.0); MCHC 29.7 G/DL (30.0-36.0); MCV 95.3 FL (86-99); MEAN PLAT.VOLUME 10.3 uM^3 (9.0-12.4); MONOCYTE COUNT 0.8 K/uL (0-0.8); NEUTROPHIL (%) 75.8 % (45-76); NEUTROPHIL COUNT 7.7 K/uL (1.8-6.4); PLATELET COUNT 163 K/uL (156-360); RBC DIS.WIDTH-CV 17.6 % (11.8-14.6); RBC DIS.WIDTH-SD 61.9 % (39-53); RED BLOOD COUNT 3.82 M/uL (4.00-5.50); WHITE BLOOD COUNT 10.1 K/uL (4.1-10.2)
[2017-06-02 07:07] LABS: ANION GAP 12 MEQ/L (2-14); CHLORIDE 97 MEQ/L (99-109); GFR ESTIMATE (CALCULATED) 10 mL/min/; GLUCOSE 94 mg/dL (70-99); SAMPLE HEMOLYSIS CHECK 0; SAMPLE ICTERIC CHECK 0; SAMPLE LIPEMIA CHECK 0; SODIUM 136 MEQ/L (136-147); UREA NITROGEN (BUN) 93 mg/dL (9-23)
[2017-06-02 07:08] LABS: POTASSIUM 6.2 MEQ/L (3.7-5.4)
[2017-06-02 07:49] VITALS: BP 140/60
[2017-06-02] MEDS ORDERED: VANCOCIN 250 M250 MG PO (08:15)
[2017-06-02 17:09] VITALS: BP 116/75
[2017-06-02 17:22] LABS: POINT-OF-CARE METER ID UU14208753
== END 2017-06-02 17:30 | DRG 85 ==
LOC: EME → EDBD 05:15 → EDOF 06:16 → 3EAST 06:16 → ENRESERV 06:18 → 3EAST 08:09
PROVIDERS: Emergency Medicine; Family Medicine; Internal Medicine; Internal Medicine Nephrology
PROC: 0HQ1XZZ Repair Face Skin, External Approach (ICD-10-PCS; principal; 2017-05-21)
PROC: 5A1D70Z Performance of Urinary Filtration, Intermittent, Less than 6 Hours Per Day (ICD-10-PCS; 2017-05-23)
PROC: 0H91XZZ Drainage of Face Skin, External Approach (ICD-10-PCS; 2017-05-25)
PROC: 0HB1XZZ Excision of Face Skin, External Approach (ICD-10-PCS; 2017-05-25)
DX: S06.5X0A Traumatic subdural hemorrhage without loss of consciousness, initial encounter (principal); A04.72 Enterocolitis due to Clostridium difficile, not specified as recurrent; E87.5 Hyperkalemia; S02.2XXA Fracture of nasal bones, initial encounter for closed fracture; S01.81XA Laceration without foreign body of other part of head, initial encounter; S01.21XA Laceration without foreign body of nose, initial encounter; L02.01 Cutaneous abscess of face; B96.6 Bacteroides fragilis [B. fragilis] as the cause of diseases classified elsewhere; B95.4 Other streptococcus as the cause of diseases classified elsewhere; W05.0XXA Fall from non-moving wheelchair, initial encounter; L89.309 Pressure ulcer of unspecified buttock, unspecified stage; I13.2 Hypertensive heart and chronic kidney disease with heart failure and with stage 5 chronic kidney disease, or end stage renal disease; N18.6 End stage renal disease; I50.22 Chronic systolic (congestive) heart failure; I69.351 Hemiplegia and hemiparesis following cerebral infarction affecting right dominant side; J44.9 Chronic obstructive pulmonary disease, unspecified; J84.10 Pulmonary fibrosis, unspecified; D63.8 Anemia in other chronic diseases classified elsewhere; R29.6 Repeated falls; I25.10 Atherosclerotic heart disease of native coronary artery without angina pectoris; M10.9 Gout, unspecified; M19.90 Unspecified osteoarthritis, unspecified site; Y92.129 Unspecified place in nursing home as the place of occurrence of the external cause; Z91.81 History of falling; Z79.02 Long term (current) use of antithrombotics/antiplatelets; Z79.82 Long term (current) use of aspirin; Z95.5 Presence of coronary angioplasty implant and graft; Z99.2 Dependence on renal dialysis; Z87.891 Personal history of nicotine dependence
CPT/HCPCS: 70450; 70486; 71020; 74000; 80048; 80053; 80069; 82948; 83036; 84100; 85025; 85027; 85610; 85730; 87070; 87075; 87076; 87185; 87205; 87340; 87493; 94799; 99202; 99281; 99285; J1644; J1815

== ENCOUNTER 2017-06-05 05:55 | Emergency (ER) | payer OTHER ==
[~2017-06-05] VITALS: Ht 167.6 cm; Wt 57.6 kg
[~2017-06-05 05:55] MED LIST changes: +VANCOCIN 250 M250 MG PO
[2017-06-05 08:50] VITALS: BP 134/78
== END 2017-06-05 08:54 ==
LOC: EME 05:55
PROC: 0HQ1XZZ Repair Face Skin, External Approach (ICD-10-PCS; principal; 2017-06-05)
DX: S01.81XA Laceration without foreign body of other part of head, initial encounter (principal); S01.21XA Laceration without foreign body of nose, initial encounter; S51.011A Laceration without foreign body of right elbow, initial encounter; W07.XXXA Fall from chair, initial encounter; Z79.01 Long term (current) use of anticoagulants; I12.9 Hypertensive chronic kidney disease with stage 1 through stage 4 chronic kidney disease, or unspecified chronic kidney disease; N18.9 Chronic kidney disease, unspecified; Z91.81 History of falling; Z99.2 Dependence on renal dialysis; Z86.73 Personal history of transient ischemic attack (TIA), and cerebral infarction without residual deficits; M10.9 Gout, unspecified; Z88.0 Allergy status to penicillin; Z87.891 Personal history of nicotine dependence
CPT/HCPCS: 70450; 99281; 99283

== ENCOUNTER 2017-06-28 11:12 | Emergency (ER) | payer OTHER ==
[~2017-06-28] VITALS: Ht 162.6 cm; Wt 57.5 kg
[2017-06-28 12:21] LABS: EOSINOPHIL (%) 0.1 % (0-5); HEMATOCRIT 33.4 % (38.0-50.0); IMMATURE GRANULOCYTE (%) 0.7 % (0.0-0.7); IMMATURE GRANULOCYTE COUNT 0.1 K/uL; MCH 28.7 PG (29.0-34.0); MCHC 30.5 G/DL (30.0-36.0); MCV 93.8 FL (86-99); MEAN PLAT.VOLUME 10.5 uM^3 (9.0-12.4); MONOCYTE (%) 6.5 % (3-12); MONOCYTE COUNT 0.9 K/uL (0-0.8); NEUTROPHIL (%) 85.7 % (45-76); RBC DIS.WIDTH-CV 18.6 % (11.8-14.6); RBC DIS.WIDTH-SD 63.7 % (39-53); RED BLOOD COUNT 3.56 M/uL (4.00-5.50)
[2017-06-28 12:23] LABS: PLATELET COUNT 208 K/uL (156-360)
[2017-06-28 12:31] LABS: CHLORIDE 97 mEq/L (99-109)
[2017-06-28 12:36] LABS: GFR ESTIMATE (CALCULATED) 8 mL/min/
[2017-06-28 12:48] LABS: SODIUM 136 mEq/L (136-147)
[2017-06-28 12:50] LABS: GLUCOSE 145 mg/dL (70-99)
[2017-06-28 12:52] LABS: ANION GAP 17 MEQ/L (2-14)
[2017-06-28 12:55] LABS: POTASSIUM 6.3 mEq/L (3.7-5.4); UREA NITROGEN (BUN) 100 mg/dL (9-23)
[2017-06-28] MEDS ORDERED: NYSTATIN100000 UN1 PO (14:51)
[2017-06-28] MEDS ORDERED: PROSCAR5 MG PO (15:00)
[2017-06-28] MEDS ORDERED: DOXYCYCLINE HY100 M3 PO (15:02)
[2017-06-28] MEDS ORDERED: LASIX40 MG PO ×2 (15:09→15:11)
[2017-06-28] MEDS ORDERED: ULTRACET1 TABLET PO (15:14)
[2017-06-28 20:35] VITALS: BP 123/68
== END 2017-06-28 20:45 ==
LOC: EME 11:12
PROVIDERS: Emergency Medicine
PROC: 5A1D70Z Performance of Urinary Filtration, Intermittent, Less than 6 Hours Per Day (ICD-10-PCS; principal; 2017-06-28)
DX: I12.0 Hypertensive chronic kidney disease with stage 5 chronic kidney disease or end stage renal disease (principal); N18.6 End stage renal disease; E87.5 Hyperkalemia; R53.1 Weakness; Z99.2 Dependence on renal dialysis; Z91.81 History of falling; J44.9 Chronic obstructive pulmonary disease, unspecified; D63.1 Anemia in chronic kidney disease; Z86.73 Personal history of transient ischemic attack (TIA), and cerebral infarction without residual deficits; I25.10 Atherosclerotic heart disease of native coronary artery without angina pectoris; M10.9 Gout, unspecified; Z88.0 Allergy status to penicillin; Z87.891 Personal history of nicotine dependence
CPT/HCPCS: 70450; 72131; 80048; 85025; 99281; 99284

== ENCOUNTER 2017-07-03 07:07 | Emergency (ER) | payer OTHER ==
[~2017-07-03] VITALS: Ht 162.6 cm; Wt 57.5 kg
[~2017-07-03 07:07] MED LIST changes: +DOXYCYCLINE HY100 M3 PO; +NYSTATIN100000 UN1 PO; +PROSCAR5 MG PO; +ULTRACET1 TABLET PO
[2017-07-03 11:34] VITALS: BP 140/63
== END 2017-07-03 11:48 ==
LOC: EME 07:07
DX: S09.8XXA Other specified injuries of head, initial encounter (principal); S00.03XA Contusion of scalp, initial encounter; M79.602 Pain in left arm; W05.0XXA Fall from non-moving wheelchair, initial encounter; Y92.129 Unspecified place in nursing home as the place of occurrence of the external cause; I12.0 Hypertensive chronic kidney disease with stage 5 chronic kidney disease or end stage renal disease; N18.5 Chronic kidney disease, stage 5; Z99.2 Dependence on renal dialysis; E78.5 Hyperlipidemia, unspecified; J44.9 Chronic obstructive pulmonary disease, unspecified; Z86.73 Personal history of transient ischemic attack (TIA), and cerebral infarction without residual deficits; Z87.891 Personal history of nicotine dependence
CPT/HCPCS: 70450; 99281; 99284

== ENCOUNTER 2017-07-07 18:01 | Inpatient (IN) | payer OTHER ==
[~2017-07-07] VITALS: Ht 162.6 cm; Wt 57.6 kg
[2017-07-07 19:18] LABS: HEMATOCRIT 36.3 % (38.0-50.0); MCH 28.7 PG (29.0-34.0); MCHC 30.3 G/DL (30.0-36.0); MCV 94.8 FL (86-99); MEAN PLAT.VOLUME 9.7 uM^3 (9.0-12.4); PLATELET COUNT 202 K/uL (156-360); RBC DIS.WIDTH-CV 18.5 % (11.8-14.6); RBC DIS.WIDTH-SD 63.9 % (39-53); RED BLOOD COUNT 3.83 M/uL (4.00-5.50); WHITE BLOOD COUNT 9.9 K/uL (4.1-10.2)
[2017-07-07 19:27] LABS: CHLORIDE 97 mEq/L (99-109); POTASSIUM 4.7 mEq/L (3.7-5.4); SODIUM 135 mEq/L (136-147)
[2017-07-07 19:28] LABS: GLUCOSE 114 mg/dL (70-99)
[2017-07-07 19:30] LABS: ANION GAP 15 MEQ/L (2-14)
[2017-07-07 19:32] LABS: GFR ESTIMATE (CALCULATED) 10 mL/min/
[2017-07-07 19:33] LABS: UREA NITROGEN (BUN) 72 mg/dL (9-23)
[2017-07-07 19:40] LABS: TROP-I INTERPRETATION NEGATIVE; TROPONIN-I 0.18 ng/mL (0.0-0.30)
[2017-07-07 23:22] LABS: TROP-I INTERPRETATION NEGATIVE; TROPONIN-I 0.15 ng/mL (0.0-0.30)
[2017-07-08] VITALS (7 sets, daily range): BP systolic 120–129; BP diastolic 60–75
[2017-07-08 04:02] LABS: TROP-I INTERPRETATION NEGATIVE; TROPONIN-I 0.15 ng/mL (0.0-0.30)
[2017-07-08 04:06] LABS: INTER. NORMALIZED RATIO 1.1; PROTHROMBIN TIME 12.8 SEC (10.2-12.9)
[2017-07-08 04:08] LABS: PTT 26.8 SEC (25-37)
[2017-07-08] MEDS ORDERED: ACIDOPHILUS CA1 EACH PO (06:11)
[2017-07-08 06:51] LABS: METH RESISTANT S AUREUS PCR POSITIVE (NEGATIVE)
[2017-07-08 06:53] LABS: PROBE CHECK PASS
[2017-07-08 07:51] LABS: EOSINOPHIL (%) 1.9 % (0-5); EOSINOPHIL COUNT 0.2 K/uL (0-0.3); HEMATOCRIT 34.5 % (38.0-50.0); IMMATURE GRANULOCYTE (%) 0.8 % (0.0-0.7); IMMATURE GRANULOCYTE COUNT 0.1 K/uL; INSTRUMENT ABS NEUTROPHIL CT 7.9 K/uL; MCH 29.1 PG (29.0-34.0); MCHC 30.7 G/DL (30.0-36.0); MCV 94.8 FL (86-99); MONOCYTE (%) 8.4 % (3-12); MONOCYTE COUNT 0.8 K/uL (0-0.8); NEUTROPHIL (%) 78.9 % (45-76); NEUTROPHIL COUNT 7.9 K/uL (1.8-6.4); PLATELET COUNT 206 K/uL (156-360); RBC DIS.WIDTH-CV 18.5 % (11.8-14.6); RBC DIS.WIDTH-SD 63.7 % (39-53); RED BLOOD COUNT 3.64 M/uL (4.00-5.50)
[2017-07-08 08:13] LABS: ANION GAP 15 MEQ/L (2-14); CHLORIDE 97 MEQ/L (99-109); POTASSIUM 5.2 MEQ/L (3.7-5.4); SAMPLE HEMOLYSIS CHECK 0; SAMPLE ICTERIC CHECK 0; SAMPLE LIPEMIA CHECK 0; SODIUM 133 MEQ/L (136-147)
[2017-07-08 08:18] LABS: GFR ESTIMATE (CALCULATED) 10 mL/min/; GLUCOSE 131 mg/dL (70-99); UREA NITROGEN (BUN) 78 mg/dL (9-23)
[2017-07-08 08:21] LABS: TROP-I INTERPRETATION POSITIVE; TROPONIN-I 15.62 ng/mL (0.0-0.30)
== END 2017-07-08 08:48 | disposition short-term general hospital (02) | DRG 280 ==
LOC: EME → EDBD 18:01 → CATH 07-08 03:49 → EME 07-08 03:49 → 2SOUTH 07-08 05:28 → ENRESERV 07-08 05:29 → 4WEST 07-08 05:32
PROVIDERS: Emergency Medicine; Internal Medicine Critical Care Medicine; Internal Medicine Interventional Cardiology; Internal Medicine Nephrology
DX: I21.09 ST elevation (STEMI) myocardial infarction involving other coronary artery of anterior wall (principal); I50.20 Unspecified systolic (congestive) heart failure; J43.9 Emphysema, unspecified; N18.6 End stage renal disease; I12.0 Hypertensive chronic kidney disease with stage 5 chronic kidney disease or end stage renal disease; D63.1 Anemia in chronic kidney disease; E11.9 Type 2 diabetes mellitus without complications; I69.351 Hemiplegia and hemiparesis following cerebral infarction affecting right dominant side; S00.83XA Contusion of other part of head, initial encounter; W18.30XA Fall on same level, unspecified, initial encounter; S02.2XXA Fracture of nasal bones, initial encounter for closed fracture; W07.XXXA Fall from chair, initial encounter; Y93.9 Activity, unspecified; Y92.129 Unspecified place in nursing home as the place of occurrence of the external cause; M47.9 Spondylosis, unspecified; I25.10 Atherosclerotic heart disease of native coronary artery without angina pectoris; R29.6 Repeated falls; E78.5 Hyperlipidemia, unspecified; I34.0 Nonrheumatic mitral (valve) insufficiency; M10.9 Gout, unspecified; R04.0 Epistaxis; Z99.2 Dependence on renal dialysis; Z87.891 Personal history of nicotine dependence; Z95.1 Presence of aortocoronary bypass graft
CPT/HCPCS: 71020; 80048; 80069; 84484; 85025; 85027; 85347; 85610; 85730; 86850; 86900; 86901; 87641; 93005; 99281; 99285; C1725; C1769; C1887; C1894; J0461; J1644; J2250; J3010; J3246; J7030

== ENCOUNTER 2017-07-27 11:54 | Inpatient (IN) | payer OTHER ==
[~2017-07-27] VITALS: Ht 162.6 cm; Wt 66.6 kg
[2017-07-27] VITALS (10 sets, daily range): BP systolic 77–123; BP diastolic 37–65
[~2017-07-27 11:54] MED LIST changes: +ACIDOPHILUS CA1 EACH PO
[2017-07-27] MEDS ORDERED: ALLOPURINOL100 MG GT (19:54)
[2017-07-27] MEDS ORDERED: TYLENOL ARTHRI650 MG GT (19:54)
[2017-07-27] MEDS ORDERED: ATORVASTATIN CA80 MG GT (19:55)
[2017-07-27] MEDS ORDERED: LO-DOSE ASPIRIN81 M1 GT (19:55)
[2017-07-27] MEDS ORDERED: PERIDEX473 ML MM (19:56)
[2017-07-27] MEDS ORDERED: CLOPIDOGREL75 MG GT (19:57)
[2017-07-27] MEDS ORDERED: PEPCID20 MG IV (19:57)
[2017-07-27] MEDS ORDERED: GABAPENTIN100 MG GT (19:58)
[2017-07-27] MEDS ORDERED: COUGH SYRU100 MG/5 M GT (19:59)
[2017-07-27] MEDS ORDERED: HEPARIN SO5000 UNIT3 SC (19:59)
[2017-07-27] MEDS ORDERED: LANTUS 10100 UNITS/ SC (20:00)
[2017-07-27] MEDS ORDERED: NOVOLIN,HU100 UNITS1 SC (20:02)
[2017-07-27] MEDS ORDERED: MILRINONE-20 MG/100 IV (20:03)
[2017-07-27] MEDS ORDERED: VANCOMYCIN HCL125 MG GT (20:04)
[2017-07-27 20:13] LABS: BASE EXCESS 0.6 mEq/L (-3 to +3); CARBOXY HGB 1.9 % (0-5); METHEMOGLOBIN 1.5 % (0-1.5); pH 7.49 (7.35-7.45)
[2017-07-27 20:14] LABS: BICARBONATE 23.6 mEq/L (22-26); PCO2 31 mm Hg (35-45); PO2 105 mm Hg (80-100)
[2017-07-27 20:15] LABS: COMMENTS - BLOOD GASES C; DEVICE VENT; FI02 40 %; INSPIRATION TIME 0.9 seconds; MECHANICAL RATE 15 resp/min; MODE AC+; PEEP 10 CM/H20; SITE LB; TIDAL VOLUME 450 ML; TOTAL RESP RATE 28 resp/min
[2017-07-27 20:24] LABS: HEMATOCRIT 30.1 % (38.0-50.0); HEMOGLOBIN 8.7 G/DL (12.5-16.6); MCH 28.4 PG (29.0-34.0); MCHC 28.9 G/DL (30.0-36.0); MCV 98.4 FL (86-99); NRBC (%) 0.2 /100 WBC (0-0); RBC DIS.WIDTH-CV 20.6 % (11.8-14.6); RBC DIS.WIDTH-SD 72.5 % (39-53); RED BLOOD COUNT 3.06 M/uL (4.00-5.50)
[2017-07-27 20:29] LABS: PLATELET COUNT 346 K/uL (156-360)
[2017-07-27 20:30] LABS: BASOPHIL (%) 0.2 % (0-1); EOSINOPHIL (%) 0.9 % (0-5); EOSINOPHIL COUNT 0.1 K/uL (0-0.3); IMMATURE GRANULOCYTE (%) 2.1 % (0.0-0.7); LYMPHOCYTE (%) 5.3 % (15-42); LYMPHOCYTE COUNT 0.9 K/uL (1.0-2.8); MONOCYTE (%) 5.3 % (3-12); MONOCYTE COUNT 0.9 K/uL (0-0.8); NEUTROPHIL (%) 86.2 % (45-76); NEUTROPHIL COUNT 13.8 K/uL (1.8-6.4)
[2017-07-27 20:31] LABS: ALBUMIN 2.8 G/DL (3.2-4.8); CHLORIDE 103 MEQ/L (99-109); POTASSIUM 4.3 MEQ/L (3.7-5.4); SODIUM 136 MEQ/L (136-147); TOTAL BILIRUBIN 0.7 MG/DL (0.0-1.0)
[2017-07-27 20:37] LABS: ALKALINE PHOSPHATASE 126 IU/L (3-129); ALT (GPT) 14 IU/L (3-49); AST (GOT) 22 IU/L (2-34); CREATININE 1.2 MG/DL (0.6-1.3); GFR ESTIMATE (CALCULATED) > 59 mL/min/ (58.99-99999); GLUCOSE 110 mg/dL (70-99); TOTAL PROTEIN 6.8 G/DL (6.4-8.3); UREA NITROGEN (BUN) 23 mg/dL (9-23)
[2017-07-28] VITALS (23 sets, daily range): BP systolic 82–114; BP diastolic 37–63
[2017-07-28 05:50] LABS: HEMOGLOBIN 8.1 G/DL (12.5-16.6); MCH 29.3 PG (29.0-34.0); MCHC 28.9 G/DL (30.0-36.0); MCV 101.4 FL (86-99); PLATELET COUNT 294 K/uL (156-360); RBC DIS.WIDTH-CV 20.5 % (11.8-14.6); RBC DIS.WIDTH-SD 75.7 % (39-53); RED BLOOD COUNT 2.76 M/uL (4.00-5.50)
[2017-07-28 06:30] LABS: CHLORIDE 109 MEQ/L (99-109); GFR ESTIMATE (CALCULATED) 42 mL/min/ (58.99-99999); GLUCOSE 116 mg/dL (70-99); POTASSIUM 4.3 MEQ/L (3.7-5.4); SODIUM 138 MEQ/L (136-147); UREA NITROGEN (BUN) 28 mg/dL (9-23)
[2017-07-28 06:32] LABS: CREATININE 1.7 MG/DL (0.6-1.3)
[2017-07-28 13:45] LABS: APPEARANCE TURBID ((CLEAR)); BILIRUBIN NEGATIVE; BLOOD MODERATE; COLOR YELLOW ((YELLOW)); GLUCOSE (STRIP) NEGATIVE; KETONES NEGATIVE; LEUKOCYTES MODERATE; NITRITE NEGATIVE; PROTEIN (STRIP) 100; SPECIFIC GRAVITY 1.018 (1.000-1.030); UROBILINOGEN 0.2 MG/DL (0.2-1.0)
[2017-07-28 14:01] LABS: WHITE BLOOD CELLS TNTC /HPF (0-5)
[2017-07-29] VITALS (27 sets, daily range): BP systolic 86–113; BP diastolic 5–63
[2017-07-29 05:00] LABS: BASOPHIL (%) 0.3 % (0-1); EOSINOPHIL (%) 0.8 % (0-5); EOSINOPHIL COUNT 0.1 K/uL (0-0.3); HEMATOCRIT 22.4 % (38.0-50.0); HEMOGLOBIN 6.6 G/DL (12.5-16.6); IMMATURE GRANULOCYTE (%) 1.4 % (0.0-0.7); LYMPHOCYTE (%) 6.7 % (15-42); LYMPHOCYTE COUNT 0.7 K/uL (1.0-2.8); MCH 29.9 PG (29.0-34.0); MCHC 29.5 G/DL (30.0-36.0); MCV 101.4 FL (86-99); MONOCYTE (%) 6.7 % (3-12); MONOCYTE COUNT 0.7 K/uL (0-0.8); NEUTROPHIL (%) 84.1 % (45-76); NEUTROPHIL COUNT 9.2 K/uL (1.8-6.4); PLATELET COUNT 240 K/uL (156-360); RBC DIS.WIDTH-CV 20.2 % (11.8-14.6); RBC DIS.WIDTH-SD 74.4 % (39-53); RED BLOOD COUNT 2.21 M/uL (4.00-5.50)
[2017-07-29 05:49] LABS: CHLORIDE 107 MEQ/L (99-109); GLUCOSE 144 mg/dL (70-99); MAGNESIUM 2.2 mg/dl (1.3-2.7); POTASSIUM 4.5 MEQ/L (3.7-5.4); SODIUM 139 MEQ/L (136-147)
[2017-07-29 05:50] LABS: CREATININE 2.6 MG/DL (0.6-1.3); GFR ESTIMATE (CALCULATED) 25 mL/min/ (58.99-99999); UREA NITROGEN (BUN) 44 mg/dL (9-23)
[2017-07-29 06:11] LABS: BASE EXCESS -5.1 mEq/L (-3 to +3); BICARBONATE 19.7 mEq/L (22-26); CARBOXY HGB 2.4 % (0-5); COMMENTS - BLOOD GASES A+C+; DEVICE VENT; FI02 30 %; MECHANICAL RATE 12 resp/min; METHEMOGLOBIN 1.5 % (0-1.5); MODE SPONT; PCO2 34 mm Hg (35-45); PO2 95 mm Hg (80-100); SITE LB; pH 7.37 (7.35-7.45)
[2017-07-29 06:12] LABS: PEEP 6 CM/H20; PRES. SUPPORT 15 CM/H2O; TOTAL RESP RATE 12 resp/min
[2017-07-30] VITALS (20 sets, daily range): BP systolic 84–123; BP diastolic 44–73
[2017-07-30 06:27] LABS: BASOPHIL (%) 0.4 % (0-1); EOSINOPHIL (%) 1.6 % (0-5); EOSINOPHIL COUNT 0.2 K/uL (0-0.3); HEMATOCRIT 29.3 % (38.0-50.0); IMMATURE GRANULOCYTE (%) 1.2 % (0.0-0.7); LYMPHOCYTE (%) 5.6 % (15-42); LYMPHOCYTE COUNT 0.6 K/uL (1.0-2.8); MCH 29.4 PG (29.0-34.0); MCHC 30.4 G/DL (30.0-36.0); MONOCYTE (%) 6.8 % (3-12); MONOCYTE COUNT 0.8 K/uL (0-0.8); NEUTROPHIL (%) 84.4 % (45-76); NEUTROPHIL COUNT 9.5 K/uL (1.8-6.4); PLATELET COUNT 236 K/uL (156-360); RBC DIS.WIDTH-CV 19.6 % (11.8-14.6); RBC DIS.WIDTH-SD 67.4 % (39-53); WHITE BLOOD COUNT 11.2 K/uL (4.1-10.2)
[2017-07-30 06:30] LABS: HEMOGLOBIN 8.9 G/DL (12.5-16.6); MCV 96.7 FL (86-99); RED BLOOD COUNT 3.03 M/uL (4.00-5.50)
[2017-07-30 06:57] LABS: CHLORIDE 105 MEQ/L (99-109); GFR ESTIMATE (CALCULATED) 18 mL/min/ (58.99-99999); GLUCOSE 122 mg/dL (70-99); MAGNESIUM 2.2 mg/dl (1.3-2.7); PHOSPHORUS 4.5 mg/dL (2.5-4.9); POTASSIUM 4.5 MEQ/L (3.7-5.4); SODIUM 136 MEQ/L (136-147)
[2017-07-30 07:09] LABS: CREATININE 3.6 MG/DL (0.6-1.3); UREA NITROGEN (BUN) 68 mg/dL (9-23)
[2017-07-31] VITALS (18 sets, daily range): BP systolic 83–115; BP diastolic 40–70
[2017-07-31 05:33] LABS: BASOPHIL (%) 0.4 % (0-1); BASOPHIL COUNT 0.1 K/uL (0-0.1); EOSINOPHIL (%) 1.4 % (0-5); EOSINOPHIL COUNT 0.2 K/uL (0-0.3); HEMATOCRIT 28.5 % (38.0-50.0); HEMOGLOBIN 8.7 G/DL (12.5-16.6); LYMPHOCYTE (%) 4.4 % (15-42); LYMPHOCYTE COUNT 0.6 K/uL (1.0-2.8); MCH 29.3 PG (29.0-34.0); MCHC 30.5 G/DL (30.0-36.0); MONOCYTE (%) 6.6 % (3-12); MONOCYTE COUNT 0.9 K/uL (0-0.8); NEUTROPHIL (%) 86.2 % (45-76); NEUTROPHIL COUNT 11.5 K/uL (1.8-6.4); PLATELET COUNT 220 K/uL (156-360); RBC DIS.WIDTH-SD 66.4 % (39-53); RED BLOOD COUNT 2.97 M/uL (4.00-5.50); WHITE BLOOD COUNT 13.3 K/uL (4.1-10.2)
[2017-07-31 06:03] LABS: CHLORIDE 102 MEQ/L (99-109); GFR ESTIMATE (CALCULATED) 27 mL/min/ (58.99-99999); POTASSIUM 4.1 MEQ/L (3.7-5.4); SODIUM 137 MEQ/L (136-147); UREA NITROGEN (BUN) 39 mg/dL (9-23)
[2017-07-31 06:06] LABS: CREATININE 2.5 MG/DL (0.6-1.3); GLUCOSE 82 mg/dL (70-99)
[2017-07-31 10:39] LABS: HEPATITIS B SURFACE ANTIBODY Nonreactive; HEPATITIS B SURFACE ANTIGEN Nonreactive
[2017-08-01] VITALS (18 sets, daily range): BP systolic 83–120; BP diastolic 47–66
[2017-08-01 09:33] LABS: BASOPHIL (%) 0.4 % (0-1); BASOPHIL COUNT 0.1 K/uL (0-0.1); EOSINOPHIL (%) 1.6 % (0-5); EOSINOPHIL COUNT 0.2 K/uL (0-0.3); HEMATOCRIT 29.3 % (38.0-50.0); HEMOGLOBIN 9.2 G/DL (12.5-16.6); IMMATURE GRANULOCYTE (%) 1.3 % (0.0-0.7); LYMPHOCYTE (%) 3.7 % (15-42); LYMPHOCYTE COUNT 0.5 K/uL (1.0-2.8); MCH 30.6 PG (29.0-34.0); MCHC 31.4 G/DL (30.0-36.0); MCV 97.3 FL (86-99); MONOCYTE (%) 5.4 % (3-12); MONOCYTE COUNT 0.7 K/uL (0-0.8); NEUTROPHIL (%) 87.6 % (45-76); NEUTROPHIL COUNT 10.7 K/uL (1.8-6.4); PLATELET COUNT 214 K/uL (156-360); RBC DIS.WIDTH-CV 18.6 % (11.8-14.6); RBC DIS.WIDTH-SD 65.4 % (39-53); RED BLOOD COUNT 3.01 M/uL (4.00-5.50); WHITE BLOOD COUNT 12.3 K/uL (4.1-10.2)
[2017-08-01 10:12] LABS: CHLORIDE 99 MEQ/L (99-109); GFR ESTIMATE (CALCULATED) 18 mL/min/ (58.99-99999); PHOSPHORUS 3.5 mg/dL (2.5-4.9); POTASSIUM 4.3 MEQ/L (3.7-5.4); SODIUM 135 MEQ/L (136-147); UREA NITROGEN (BUN) 58 mg/dL (9-23)
[2017-08-01 10:21] LABS: TROP-I INTERPRETATION POSITIVE; TROPONIN-I 2.36 ng/mL (0.0-0.30)
[2017-08-01 10:22] LABS: CREATININE 3.5 MG/DL (0.6-1.3); GLUCOSE 125 mg/dL (70-99)
[2017-08-01 12:25] LABS: C DIFF TOXIN NEGATIVE (NEGATIVE)
[2017-08-02] VITALS (15 sets, daily range): BP systolic 97–131; BP diastolic 50–106
[2017-08-02 06:52] LABS: CHLORIDE 95 MEQ/L (99-109); GLUCOSE 154 mg/dL (70-99); MAGNESIUM 2.2 mg/dl (1.3-2.7); POTASSIUM 4.8 MEQ/L (3.7-5.4); SODIUM 132 MEQ/L (136-147); UREA NITROGEN (BUN) 72 mg/dL (9-23)
[2017-08-02 06:53] LABS: CREATININE 4.1 MG/DL (0.6-1.3); GFR ESTIMATE (CALCULATED) 15 mL/min/ (58.99-99999); PHOSPHORUS 5.3 mg/dL (2.5-4.9)
[2017-08-02 07:45] LABS: BASOPHIL (%) 0.3 % (0-1); EOSINOPHIL (%) 1.4 % (0-5); EOSINOPHIL COUNT 0.2 K/uL (0-0.3); HEMATOCRIT 32.9 % (38.0-50.0); IMMATURE GRANULOCYTE (%) 1.4 % (0.0-0.7); LYMPHOCYTE (%) 3.3 % (15-42); LYMPHOCYTE COUNT 0.4 K/uL (1.0-2.8); MCH 30.1 PG (29.0-34.0); MCHC 30.4 G/DL (30.0-36.0); MCV 99.1 FL (86-99); MONOCYTE (%) 4.6 % (3-12); MONOCYTE COUNT 0.6 K/uL (0-0.8); NEUTROPHIL COUNT 10.7 K/uL (1.8-6.4); PLATELET COUNT 275 K/uL (156-360); RBC DIS.WIDTH-CV 18.6 % (11.8-14.6); RBC DIS.WIDTH-SD 66.7 % (39-53); RED BLOOD COUNT 3.32 M/uL (4.00-5.50)
[2017-08-02 08:10] LABS: PLAT.SUFFICIENCY ADEQUATE
[2017-08-02 11:06] LABS: BASE EXCESS -0.6 mEq/L (-3 to +3); BICARBONATE 25.4 mEq/L (22-26); CARBOXY HGB 1.6 % (0-5); COMMENTS - BLOOD GASES A+C+; DEVICE 908 PB; FI02 100 %; INSPIRATION TIME 0.9 seconds; MECHANICAL RATE 14 resp/min; METHEMOGLOBIN 1.5 % (0-1.5); MODE AC/PC; PCO2 47 mm Hg (35-45); PO2 274 mm Hg (80-100); PRESSURE CONTROL VENTILATION 18 CM H20; SITE R FEMORAL; TOTAL RESP RATE 14 resp/min; pH 7.34 (7.35-7.45)
[2017-08-02 11:07] LABS: PEEP 5 CM/H20
[2017-08-03] VITALS (7 sets, daily range): BP systolic 95–122; BP diastolic 47–63
[2017-08-03 05:41] LABS: BASOPHIL (%) 0.4 % (0-1); EOSINOPHIL (%) 1.4 % (0-5); EOSINOPHIL COUNT 0.2 K/uL (0-0.3); HEMATOCRIT 27.3 % (38.0-50.0); HEMOGLOBIN 8.3 G/DL (12.5-16.6); LYMPHOCYTE COUNT 0.8 K/uL (1.0-2.8); MCH 28.8 PG (29.0-34.0); MCHC 30.4 G/DL (30.0-36.0); MONOCYTE (%) 5.5 % (3-12); MONOCYTE COUNT 0.6 K/uL (0-0.8); NEUTROPHIL (%) 84.7 % (45-76); NEUTROPHIL COUNT 9.5 K/uL (1.8-6.4); PLATELET COUNT 220 K/uL (156-360); RBC DIS.WIDTH-CV 17.9 % (11.8-14.6); RBC DIS.WIDTH-SD 61.5 % (39-53); RED BLOOD COUNT 2.88 M/uL (4.00-5.50); WHITE BLOOD COUNT 11.2 K/uL (4.1-10.2)
[2017-08-03 05:42] LABS: MCV 94.8 FL (86-99)
[2017-08-03 06:21] LABS: CHLORIDE 98 MEQ/L (99-109); GFR ESTIMATE (CALCULATED) 16 mL/min/ (58.99-99999); GLUCOSE 140 mg/dL (70-99); PHOSPHORUS 3.1 mg/dL (2.5-4.9); POTASSIUM 4.1 MEQ/L (3.7-5.4); SODIUM 134 MEQ/L (136-147); UREA NITROGEN (BUN) 70 mg/dL (9-23)
[2017-08-04 05:30] LABS: BASOPHIL (%) 0.4 % (0-1); EOSINOPHIL COUNT 0.2 K/uL (0-0.3); HEMATOCRIT 26.2 % (38.0-50.0); HEMOGLOBIN 8.1 G/DL (12.5-16.6); LYMPHOCYTE (%) 6.1 % (15-42); LYMPHOCYTE COUNT 0.6 K/uL (1.0-2.8); MCH 29.2 PG (29.0-34.0); MCHC 30.9 G/DL (30.0-36.0); MCV 94.6 FL (86-99); MONOCYTE (%) 5.6 % (3-12); MONOCYTE COUNT 0.6 K/uL (0-0.8); NEUTROPHIL (%) 84.9 % (45-76); NEUTROPHIL COUNT 8.8 K/uL (1.8-6.4); PLATELET COUNT 212 K/uL (156-360); RBC DIS.WIDTH-CV 17.7 % (11.8-14.6); RBC DIS.WIDTH-SD 61.1 % (39-53); RED BLOOD COUNT 2.77 M/uL (4.00-5.50); WHITE BLOOD COUNT 10.4 K/uL (4.1-10.2)
[2017-08-04 06:04] LABS: CHLORIDE 96 MEQ/L (99-109); CREATININE 4.6 MG/DL (0.6-1.3); GFR ESTIMATE (CALCULATED) 13 mL/min/ (58.99-99999); GLUCOSE 106 mg/dL (70-99); PHOSPHORUS 3.5 mg/dL (2.5-4.9); POTASSIUM 4.4 MEQ/L (3.7-5.4); SODIUM 132 MEQ/L (136-147); UREA NITROGEN (BUN) 80 mg/dL (9-23)
[2017-08-04 12:00] VITALS: BP 122/61
[2017-08-04 16:00] VITALS: BP 114/56
[2017-08-04 18:00] VITALS: BP 114/56
[2017-08-04 20:00] VITALS: BP 114/58
[2017-08-05] VITALS: BP 106/61
[2017-08-05 04:00] VITALS: BP 106/51
[2017-08-05 05:54] LABS: BASOPHIL (%) 0.3 % (0-1); EOSINOPHIL (%) 2.7 % (0-5); EOSINOPHIL COUNT 0.3 K/uL (0-0.3); HEMATOCRIT 25.8 % (38.0-50.0); HEMOGLOBIN 8.1 G/DL (12.5-16.6); IMMATURE GRANULOCYTE (%) 0.6 % (0.0-0.7); LYMPHOCYTE (%) 5.9 % (15-42); LYMPHOCYTE COUNT 0.6 K/uL (1.0-2.8); MCH 29.7 PG (29.0-34.0); MCHC 31.4 G/DL (30.0-36.0); MCV 94.5 FL (86-99); MONOCYTE (%) 5.6 % (3-12); MONOCYTE COUNT 0.5 K/uL (0-0.8); NEUTROPHIL (%) 84.9 % (45-76); NEUTROPHIL COUNT 8.2 K/uL (1.8-6.4); PLATELET COUNT 202 K/uL (156-360); RBC DIS.WIDTH-CV 17.9 % (11.8-14.6); RBC DIS.WIDTH-SD 61.5 % (39-53); RED BLOOD COUNT 2.73 M/uL (4.00-5.50); WHITE BLOOD COUNT 9.6 K/uL (4.1-10.2)
[2017-08-05 06:30] LABS: CHLORIDE 93 MEQ/L (99-109); CREATININE 5.1 MG/DL (0.6-1.3); GFR ESTIMATE (CALCULATED) 12 mL/min/ (58.99-99999); GLUCOSE 116 mg/dL (70-99); PHOSPHORUS 4.2 mg/dL (2.5-4.9); POTASSIUM 4.8 MEQ/L (3.7-5.4); SODIUM 129 MEQ/L (136-147); UREA NITROGEN (BUN) 91 mg/dL (9-23)
[2017-08-05 08:00] VITALS: BP 105/50
[2017-08-05 12:00] VITALS: BP 107/51
[2017-08-05 16:00] VITALS: BP 121/64
[2017-08-05 20:00] VITALS: BP 121/60
[2017-08-06] VITALS: BP 121/60
[2017-08-06 05:37] LABS: BASOPHIL (%) 0.5 % (0-1); EOSINOPHIL (%) 2.3 % (0-5); EOSINOPHIL COUNT 0.2 K/uL (0-0.3); HEMATOCRIT 25.2 % (38.0-50.0); HEMOGLOBIN 7.9 G/DL (12.5-16.6); IMMATURE GRANULOCYTE (%) 0.7 % (0.0-0.7); LYMPHOCYTE (%) 5.3 % (15-42); LYMPHOCYTE COUNT 0.4 K/uL (1.0-2.8); MCH 29.2 PG (29.0-34.0); MCHC 31.3 G/DL (30.0-36.0); MONOCYTE (%) 6.4 % (3-12); MONOCYTE COUNT 0.5 K/uL (0-0.8); NEUTROPHIL (%) 84.8 % (45-76); NEUTROPHIL COUNT 6.5 K/uL (1.8-6.4); PLATELET COUNT 221 K/uL (156-360); RBC DIS.WIDTH-CV 17.7 % (11.8-14.6); RBC DIS.WIDTH-SD 59.9 % (39-53); RED BLOOD COUNT 2.71 M/uL (4.00-5.50); WHITE BLOOD COUNT 7.7 K/uL (4.1-10.2)
[2017-08-06 06:00] VITALS: BP 120/58
[2017-08-06 06:16] LABS: CHLORIDE 92 MEQ/L (99-109); CREATININE 5.5 MG/DL (0.6-1.3); GFR ESTIMATE (CALCULATED) 11 mL/min/ (58.99-99999); GLUCOSE 108 mg/dL (70-99); PHOSPHORUS 4.5 mg/dL (2.5-4.9); POTASSIUM 5.1 MEQ/L (3.7-5.4); SODIUM 127 MEQ/L (136-147); UREA NITROGEN (BUN) 101 mg/dL (9-23)
[2017-08-06 08:00] VITALS: BP 124/68
[2017-08-06 12:00] VITALS: BP 128/64
[2017-08-06 16:00] VITALS: BP 121/61
[2017-08-06 20:00] VITALS: BP 119/58
[2017-08-07 04:00] VITALS: BP 105/50
[2017-08-07 06:00] VITALS: BP 105/50
[2017-08-07 08:00] VITALS: BP 111/54
[2017-08-07 12:00] VITALS: BP 119/60
[2017-08-07 16:00] VITALS: BP 116/56
[2017-08-07 20:00] VITALS: BP 98/54
[2017-08-08] VITALS (7 sets, daily range): BP systolic 99–124; BP diastolic 44–66
[2017-08-08 21:34] LABS: APPEARANCE TURBID ((CLEAR)); COLOR DK YELLOW ((YELLOW)); LEUKOCYTES LARGE; NITRITE NEGATIVE; SPECIFIC GRAVITY 1.013 (1.000-1.030)
[2017-08-08 21:35] LABS: BILIRUBIN NEGATIVE; BLOOD LARGE; GLUCOSE (STRIP) NEGATIVE; KETONES NEGATIVE; PH, URINE 7.5 (5-8); PROTEIN (STRIP) 300; UROBILINOGEN 0.2 MG/DL (0.2-1.0)
[2017-08-08 22:02] LABS: RED BLOOD CELLS TNTC /HPF (0-5); WHITE BLOOD CELLS TNTC /HPF (0-5)
[2017-08-09] VITALS: BP 102/49
[2017-08-09 04:46] LABS: HEMATOCRIT 23.8 % (38.0-50.0); HEMOGLOBIN 7.7 G/DL (12.5-16.6); MCH 29.6 PG (29.0-34.0); MCHC 32.4 G/DL (30.0-36.0); MCV 91.5 FL (86-99); PLATELET COUNT 260 K/uL (156-360); RBC DIS.WIDTH-CV 16.9 % (11.8-14.6); RBC DIS.WIDTH-SD 56.6 % (39-53); WHITE BLOOD COUNT 9.9 K/uL (4.1-10.2)
[2017-08-09 04:57] LABS: CHLORIDE 89 mEq/L (99-109); POTASSIUM 5.8 mEq/L (3.7-5.4); SODIUM 123 mEq/L (136-147)
[2017-08-09 04:58] LABS: MAGNESIUM 1.9 mg/dL (1.3-2.7)
[2017-08-09 05:00] LABS: GLUCOSE 95 mg/dL (70-99)
[2017-08-09 05:03] LABS: CREATININE 6.4 mg/dL (0.6-1.3); GFR ESTIMATE (CALCULATED) 9 mL/min/ (58.99-99999); PHOSPHORUS 5.2 mg/dL (2.5-4.9)
[2017-08-09 05:06] LABS: UREA NITROGEN (BUN) 130 mg/dL (9-23)
[2017-08-09 07:00] VITALS: BP 99/52
[2017-08-09 08:00] VITALS: BP 101/51
[2017-08-09 21:10] VITALS: BP 110/57
[2017-08-09 23:00] VITALS: BP 108/57
[2017-08-10] VITALS (17 sets, daily range): BP systolic 101–124; BP diastolic 51–73
[2017-08-10 04:51] LABS: ALBUMIN 2.5 g/dL (3.2-4.8)
[2017-08-10 04:52] LABS: CHLORIDE 90 mEq/L (99-109); SODIUM 124 mEq/L (136-147)
[2017-08-10 04:54] LABS: GLUCOSE 106 mg/dL (70-99)
[2017-08-10 04:57] LABS: CREATININE 6.7 mg/dL (0.6-1.3); GFR ESTIMATE (CALCULATED) 9 mL/min/ (58.99-99999); PHOSPHORUS 5.7 mg/dL (2.5-4.9)
[2017-08-10 05:09] LABS: UREA NITROGEN (BUN) 140 mg/dL (9-23)
[2017-08-10 11:27] LABS: BASE EXCESS -7.3 mEq/L (-3 to +3); CARBOXY HGB 2.2 % (0-5); METHEMOGLOBIN 1.5 % (0-1.5); PCO2 43 mm Hg (35-45)
[2017-08-10 11:28] LABS: BICARBONATE 19.3 mEq/L (22-26); DEVICE 980; MODE SPONT; PO2 81 mm Hg (80-100); SITE RR; pH 7.26 (7.35-7.45)
[2017-08-10 11:29] LABS: COMMENTS - BLOOD GASES A+C+; FI02 40 %; PEEP 5 CM/H20; PRES. SUPPORT 5 CM/H2O
[2017-08-10 12:49] LABS: BASE EXCESS -10.6 mEq/L (-3 to +3); BICARBONATE 20.1 mEq/L (22-26); METHEMOGLOBIN 1.3 % (0-1.5); PO2 92 mm Hg (80-100)
[2017-08-10 12:50] LABS: COMMENTS - BLOOD GASES A+C+; DEVICE NC; O2 FLOW 6 L/MIN; PCO2 76 mm Hg (35-45); SITE LR; pH 7.03 (7.35-7.45)
== END 2017-08-10 16:10 | DRG 207 ==
LOC: 4WEST 11:54 → ENRESERV 11:54 → 4WEST 18:55
PROVIDERS: Emergency Medicine; Internal Medicine Critical Care Medicine; Internal Medicine Nephrology; Specialist; Surgery
DX: J96.22 Acute and chronic respiratory failure with hypercapnia (principal); R57.0 Cardiogenic shock; J15.0 Pneumonia due to Klebsiella pneumoniae; J15.211 Pneumonia due to Methicillin susceptible Staphylococcus aureus; A04.72 Enterocolitis due to Clostridium difficile, not specified as recurrent; I21.09 ST elevation (STEMI) myocardial infarction involving other coronary artery of anterior wall; I13.2 Hypertensive heart and chronic kidney disease with heart failure and with stage 5 chronic kidney disease, or end stage renal disease; E11.22 Type 2 diabetes mellitus with diabetic chronic kidney disease; N18.6 End stage renal disease; I50.22 Chronic systolic (congestive) heart failure; I50.82 Biventricular heart failure; I47.2 Ventricular tachycardia; N17.9 Acute kidney failure, unspecified; E87.4 Mixed disorder of acid-base balance; D63.1 Anemia in chronic kidney disease; E86.0 Dehydration; E86.1 Hypovolemia; J44.0 Chronic obstructive pulmonary disease with (acute) lower respiratory infection; I25.5 Ischemic cardiomyopathy; L89.620 Pressure ulcer of left heel, unstageable; L89.610 Pressure ulcer of right heel, unstageable; R64 Cachexia; I34.0 Nonrheumatic mitral (valve) insufficiency; I25.10 Atherosclerotic heart disease of native coronary artery without angina pectoris; M47.816 Spondylosis without myelopathy or radiculopathy, lumbar region; M62.81 Muscle weakness (generalized); E78.5 Hyperlipidemia, unspecified; M19.90 Unspecified osteoarthritis, unspecified site; Z99.2 Dependence on renal dialysis; Z66 Do not resuscitate; Z79.02 Long term (current) use of antithrombotics/antiplatelets; Z79.82 Long term (current) use of aspirin; Z86.73 Personal history of transient ischemic attack (TIA), and cerebral infarction without residual deficits; Z95.5 Presence of coronary angioplasty implant and graft; Z79.4 Long term (current) use of insulin; Z68.21 Body mass index [BMI] 21.0-21.9, adult
CPT/HCPCS: 31720; 36600; 71010; 80048; 80053; 80069; 81003; 82803; 82948; 83605; 83735; 84100; 84484; 85025; 85027; 86706; 86850; 86900; 86901; 86920; 87070; 87077; 87086; 87147; 87186; 87205; 87340; 87493; 87641; 93306; 94002; 94003; 94640; 94640 76; 94760; 94799; 99202; J1644; J1815; J2250; J2260; J2270; J2704; J3010; J7030; P9016; P9047